=== PATIENT | female | born 1960 | race Caucasian/White ===

== ENCOUNTER → 2017-09-03 17:47 | Outpatient (CLI) | payer MEDICAID, SELFPAY ==
--- NOTE | 2017-09-03 17:51 | MRI_ITS ---
STUDY: MRI LUMBAR SPINE WITH AND WITHOUT CONTRAST REASON FOR EXAM: Female, 57 years old. Back and leg pain with history of fusion at L4/5. TECHNIQUE: Standardized fat and water weighted pulse sequences were obtained in the sagittal and axial planes. 9 ml of Gadavist contrast material was administered for the contrast portion of the examination. COMPARISON: None FINDINGS: T12-L1: Mild disc desiccation without associated disc bulge, spinal canal narrowing or foraminal narrowing. Normal lumbar lordosis. There is no substantial scoliosis. Normal conus medullaris that terminates at the T12/L1 level. L1-2: Disc desiccation with minimal disc space loss without associated spinal canal narrowing or foraminal narrowing. L2-3: Disc desiccation and dehydration without associated disc bulge, spinal canal narrowing or foraminal narrowing. L3-4: Mild decreased disc space and minimal disc bulge without associated spinal canal narrowing or foraminal narrowing. L4-5: There complete loss of disc space with grade 1 anterolisthesis at this level resulting in mild to moderate bilateral foraminal narrowing. L5-S1: Posterior fusion hardware at this level with pedicle screws showing normal alignment. There is degenerative disc changes at this level without associated disc bulge, spinal canal narrowing or foraminal narrowing. Normal visualized sacral ala. Normal visualized paraspinous soft tissue structures. Postcontrast imaging demonstrates no evidence of abnormal disc or epidural enhancement. MRI/Spine Lumbar W/WO Contrast IMPRESSION: 1. Predominant degenerative change at L4/5 with grade 1 anterolisthesis resulting in mild to moderate bilateral foraminal narrowing, clinically correlate for L4 nerve root radiculopathy. 2. Posterior fusion hardware L5/S1 showing normal alignment. No evidence of abnormal disc or epidural enhancement. Electronically Signed: Robin Wesley DO at 23:54 EST , Service support ,
== END ==
PROVIDERS: Family Provider Family Medicine Geriatric Medicine; PCP Family Medicine Geriatric Medicine; Visit Provider Orthopaedic Surgery
DX: M79.606 Pain in leg, unspecified (principal); M54.9 Dorsalgia, unspecified; Z98.1 Arthrodesis status
CPT/HCPCS: 72158; A9585

== ENCOUNTER → 2017-10-01 17:05 | Outpatient (CLI) | payer MEDICAID, SELFPAY | PROVIDERS: Family Provider Family Medicine Geriatric Medicine; PCP Family Medicine Geriatric Medicine; Visit Provider Family Medicine Geriatric Medicine | DX: R68.83 Chills (without fever) (principal) | CPT/HCPCS: 87633 ==

== ENCOUNTER → 2017-10-15 11:43 | Outpatient (CLI) | payer MEDICAID, OTHER, SELFPAY ==
[2017-10-15 14:11] LABS: Erythrocyte Sedimentation Rate 12 mm/hr (0-30)
[2017-10-15 14:36] LABS: CRP < 2.90 mg/L (0.0-3.0)
== END ==
PROVIDERS: Family Provider Family Medicine Geriatric Medicine; PCP Family Medicine Geriatric Medicine; Visit Provider Orthopaedic Surgery
DX: M54.5 Low back pain (principal)
CPT/HCPCS: 36415; 85652; 86140

== ENCOUNTER → 2017-12-13 09:05 | Outpatient (CLI) | payer MEDICAID, SELFPAY ==
[2017-12-13 11:41] LABS: Absolute Lymphocyte Count 2.65 X10^3/ul (0.83-4.51); Absolute Neutrophil Count 2.5 X10^3/uL (2.0-7.7); Basophil# 0.05 X10^3/uL; Basophil% 0.8 % (0-1); Eosinophils% 3.3 % (0-5); Hematocrit 44.7 % (37-47); Hemoglobin 14.6 g/dl (12.0-15.0); Lymphocyte # 2.65 X10^3/ul (4.0); Lymphocyte % 44.1 % (19-41); Mean Corp Hgb Conc 32.7 g/gl (32-36); Mean Corpuscular Hgb 28.6 pg (27.0-32.0); Mean Corpuscular Volume 87.5 fL (81-99); Mean Platelet Vol. 11.1 fl (6.2-12.0); Monocyte# 0.56 X10^3/uL; Monocyte% 9.3 % (0-10); Neutrophil # 2.54 X10^3/uL (2.7-7.7); Neutrophil % 42.3 % (47-70); POSITIVE COUNT NO; POSITIVE DIFFERENTIAL NO; POSITIVE MORPHOLOGY NO; Platelet Count 260 K/mm3 (150-450); RBC Distribution Width CV 12.8 % (11.6-14.6); RBC Distribution Width SD 40.8 fl (35.1-43.9); Red Blood Count 5.11 M/mm3 (4.2-5.4)
[2017-12-13 12:04] LABS: Vitamin D,25 Hydroxy 29.8 ng/mL (29.95-100.01)
[2017-12-13 12:13] LABS: ALB/GLOB Ratio 1.2 RATIO (0.9-2.4); AST(SGOT) 18 U/L (15-37); Alanine Aminotransfer ALT/SGPT 23 U/L (13-56); Albumin, Serum 3.8 g/dL (3.2-5.0); Alkaline Phosphatase 82 U/L (45-117); Anion Gap 7 (5-15); BUN 14 mg/dL (7-18); BUN/Creat Ratio 16.9 RATIO (10-20); Calcium,Total 8.8 mg/dL (8.5-10.1); Chloride 107 mmol/L (98-107); Creatinine, Serum 0.83 mg/dL (0.55-1.02); EST Glomerular Filtration Rate 76 mL/min (>60); Est Glom Filt Rate - Afr Amer 92 mL/min (>60); Globulin 3.3 g/dL (2.2-4.2); Glucose 90 mg/dL (74-106); Potassium 3.7 mmol/L (3.5-5.1); Protein, Total 7.1 g/dL (6.4-8.2); Sodium Level 139 mmol/L (136-145); Thyroid Stim Hormone (TSH) 0.11 uIU/mL (0.358-3.74)
[2017-12-16 09:10] LABS: Hep C Antibodies <0.1 s/co ratio (0.0-0.9)
== END ==
PROVIDERS: Family Provider Family Medicine Geriatric Medicine; PCP Family Medicine Geriatric Medicine; Visit Provider Family Medicine Geriatric Medicine
DX: R53.83 Other fatigue (principal); E55.9 Vitamin D deficiency, unspecified; Z13.89 Encounter for screening for other disorder
CPT/HCPCS: 36415; 80053; 82306; 84443; 85025; 86803

== ENCOUNTER 2018-01-17 07:39 | Day surgery (SDC) | payer MEDICAID, SELFPAY ==
[2018-01-17] VITALS (7 sets, daily range): BP systolic 94–133; BP diastolic 61–85; PULSE 53–64; RESP 18; TEMP 36.4–36.6; O2SAT 99–100; BMI 36.3
--- NOTE | 2018-01-17 | COLBX_PTH ---
PATIENT: ATUL DUPREE LOC: EN U#:[id number] AGE/SX: 57/F ROOM: RE01/17/[address]: Dr. Eleazar Romano MD : 1960 BED: DIS: 01/17/2018 SPEC #: [id number] RECD: 01/17/18 13:18 STATUS: ANNA CHARANJIT #: [id number] JACEK: 01/17/18 00:[address]: Eleazar Romano DEPT: SURGICAL PATHOLOGY RECD BY: Francesco Bridges ENTERED: 01/17/18 13:19 SP TYPE: COLON BX OTHR DR: Dr. Valente Marie MD Tissues: A - Transverse colon B - Descending colon C - Sigmoid colon biopsy D - Rectum, NOS Procedures: Surgery Specimen Level IV HEADER OPERATION: Colonoscopy PRE-OP DIAGNOSIS: Screening TISSUE SUBMITTED: A. Distal transverse colon polyp, B. Proximal descending colon polyp, C. Sigmoid colon polyp, D. Rectal polyp MICROSCOPIC DIAGNOSIS A. Distal transverse colon polyp, polypectomy: Tubular adenoma. B. Proximal descending colon polyp, polypectomy: Tubular adenoma. C. Sigmoid colon polyp, polypectomy: Hyperplastic polyp. Fragment of fecal material. D. Rectal polyp, polypectomy: Hyperplastic polyp. DONNIE:oma 01/20/18 MICROSCOPIC DESCRIPTION Slides are reviewed. GROSS DESCRIPTION A. Received is one container labeled with the patient name and designated distal transverse colon polyp. The specimen consists of one irregular fragment of light hirsch soft tissue that measures 0.3 x 0.3 x 0.2 cm. The specimen is totally submitted in one cassette. B. Received in fixative is one container labeled with the patient's name and designated proximal descending colon polyp. The specimen consists of a piece of hirsch-pink polyp measuring 0.8 x 0.6 x 0.4 cm. The entire specimen is submitted in one cassette. C. Received in fixative is one container labeled with the patient's name and designated sigmoid colon polyp. The specimen consists of a hirsch-pink polyp measuring 0.7 x 0.7 x 0.4 cm. Also present in the container is a piece of hirsch material measuring 0.3 x 0.2 x 0.1 cm. The specimen is totally submitted in one cassette. D. Received in fixative is one container labeled with the patient's name and designated rectal polyp. The specimen consists of a piece of hirsch-pink polyp measuring 0.3 x 0.3 x 0.3 cm. The specimen is totally submitted in one cassette.DONNIE/oma 01/17/18 TC:1 CPT: 31212m2
--- NOTE | 2018-01-17 09:36 | HP.PCM_ITS ---
Past Medical/Surgical History - Planned Operation Planned Operative Procedure/s: colonoscopy open access Date of Operative Procedure: 01/17/18 Permit Signed: No S.O.S: No Is This Patient Having a Total Joint: No - Previous Hospitalizations/Surgeries HX Hospitalizations: No HX of Surgeries: exploratory 1978. cyst removed from tailbone 1979. tubal ligation 1988. carpal tunnel bilat 1998. carpal tunnel left 2010. l5-sacrum sabas and screws/back surgery 2010 Any Problems With Anesthesia: No You/Your Family Experience Fever (Hyperthermia) With Anes: No Cholinesterase deficiency: No - Cardiovascular Hx Chest Pain within Last 2 months: No Hx of Irregular Heartbeat and/or Afib: No Hx Heart Attack: No Hx Congestive Heart Failure: No Hx Rheumatic Fever: No Hx Hypertension: No Hx Internal Defibrillator: No Hx Pacemaker: No Hx Cardiac Catheterization: No Hx Cardiac Surgery/Stents/Etc.: No Hx Stress Test: No HX Edema: No Hx Pain in Legs when Walking/Leg Cramps: Yes - leg pain d/t back issues - Respiratory Chronic Cough: No HX of Shortness of Breath: No Hoarseness: No Hx Chronic Obstructive Pulmonary Disease (COPD): No Hx Asthma: No Hx Emphysema: No Hx Sleep Apnea: No Hx Oxygen Use at Home: No Hx Respiratory Tract Infection/Cold (presently): No Do You Snore Loudly (louder than talking or can be heard): No Do You Often Feel Tired/ Fatigued/ Sleepy Dring Daytime?: Yes Has Anyone Observed You Stop Breathing During Sleep?: No Result (for STOP score): Negative Hx Smoking: Yes - quit ppd for 30 yrs Smoking Status: Former smoker - Gastrointestinal Hx Gastroesophageal Reflux: No - occ heartburn Hx Gastrointestinal Disorders: No Hx Gastrointestinal Bleed: No Hx Ulcer: No Hx Hiatal Hernia: No Difficulty Chewing/Swallowing: No Recent Onset of Swallowing Problems: No Special diet followed at home: No Hx Unplanned Weight Loss of 20#: No HX Unplanned Weight Gain of 20#: No - Neurological Hx Seizures: No HX Syncope/Blackout Spells/Unconsciousness: No Hx CVA/Stroke: No Hx Transient Ischemic Attacks (TIA): No Hx Multiple Sclerosis: No Hx Parkinson's Disease: No Hx Head/Neck Injury: No Hx Headaches: No Hx Back Injury/Pain: Yes - lumbar back surgery with rods and screws Recent Onset of Speech Difficulty: No Restless Legs: No Does patient have nerve stimulator: No Patient instructed to have device shut off: No Rep notified?: No - Blood Disorder Hx Leukemia: No Bleeding Tendencies: Yes - easy bruising d/t previous prolonged steroid use Hx Deep Vein Thrombosis: No Hx High Cholesterol: No Blood Transmitted Disease: No Hx Hepatitis: No Hx Cirrhosis: No Hx Anemia: Yes - during only Hx Blood Disorders: No - Reproduction : No Is Patient Lactating: No Hx Hysterectomy: No Hx Tubal Ligation: Yes Are You Post Menopause: Yes - Genitourinary Hx Renal Disease: No - Musculoskeletal Hx Arthritis: Yes Hx Rheumatoid Arthritis: No Hx Gout: No Recent Onset of an Orthopedic Problem: No - Endocrine Hx Diabetes: No Thyroid Disease: Yes - on med Hx Steroid Therapy: Yes - prednisone recently - Psycho/Social Hx 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 Hx Alcohol Use: Yes - rarely Hx Anxiety: No Hx Depression: No Mental Illness: No Hx Dementia: No - Miscellaneous Hx Cancer: No Recent Exposure to Contagious Disease: No Active MRSA: No Hx of C-Diff: No Any Loose Teeth: No - full set of dentures Allergies tetracycline Allergy (Verified 01/08/18 10:52) Unknown - Discharge Is Pt Admitted From a Detention, or a Longterm: No Who Could Help: family After D/C, Where Do you Plan to Go: Return Home - Physical Exam General: Alert, Oriented x3, Cooperative, No apparent distress HEENT: Atraumatic Lungs: Normal air movement Cardiovascular: Regular rate, Regular Rhythm Abdomen: Soft, Non Tender, Non-Distended Vital Signs Temp Pulse Resp BP Pulse Ox 98 F 60 18 133/85 H 99 01/17/18 08:12 01/17/18 08:12 01/17/18 08:12 01/17/18 08:12 01/17/18 08:12 Oxygen Delivery Method Room Air Weight: 192 lb 7.417 oz Body Mass Index (BMI) 36.3 Assessment/Plan 57-year-old female for screening colonoscopy 1. The patient reports she is having no issues at this time. She is having no abdominal pain or blood in her stool. She has no family history of colon cancer. This is her first colonoscopy. 2. I explained endoscopy in detail to the patient. I explained the risks including but not limited to stroke or heart attack with anesthesia, perforation of the GI tract, bleeding, infection. I explained that any of these could necessitate further emergency surgery. The patient understands and all questions were answered sufficiently. The patient wishes to proceed with procedure. Eleazar Romano MD Pager: [facility] [address] [place] [address] [address] [place] [address] Office: Surgery Risks - Colonoscopy Risks Include but are not Limited To: Risks include but are not limited to: Bleeding, perforation requiring further surgery, inability to complete colonoscopy requiring barium enema.
--- NOTE | 2018-01-17 12:04 | PCM.OPRPT ---
Problem List (1) Screen for colon cancer Status: Acute Report of Operation Date of Procedure: 01/17/18 Pre-Operative Diagnosis: Screening for colon cancer Post-Operative Diagnosis: Several polyps Surgery/Procedure Performed:: Colonoscopy with several snare polypectomies Specimen's removed: 1. Distal transverse colon polyp. 2. Descending colon polyp. 3. Sigmoid colon polyp. 4. Rectal polyp Description of Procedure: The major risks and benefits associated with the procedure were explained to the patient in detail. The patient verbalized understanding and agreement with the same. The patient was brought to the endoscopy suite. After adequate sedation was achieved, the patient was placed in the left lateral decubitus position and a digital rectal exam was performed. This examination was within normal limits. A well-lubricated colonoscope was then inserted into the rectum and advanced under direct visualization to the level of the cecum. The bowel prep was good. The cecum was identified by both visual and anatomic landmarks. A photograph was taken of the end of the cecum. The scope was then fully withdrawn while examining the color, texture, anatomy and integrity of the mucosa from the cecum to the anal canal. The findings were consistent with normal colonic mucosa. The patient had several polyps. She had a pedunculated polyp of the distal transverse colon as well as descending colon. She had 2 in the sigmoid colon and she had another polyp in the rectal area. All of these were removed with cautery snare and hemostasis was good. Over 6 minutes were taken to examine the colonic mucosa. Upon reaching the rectum the scope was retroflexed to examine the distal rectal vault. The scope was then straightened and was completely retrieved upon exiting the anal canal and the procedure was terminated. The patient was then transferred to the recovery room in stable condition. Recommendations for follow up: Dependent on pathology
== END 2018-01-17 11:23 | disposition home or self-care (01) ==
LOC: EN 07:40 → AC 07:41
PROVIDERS: Family Provider Family Medicine Geriatric Medicine; PCP Family Medicine Geriatric Medicine; Visit Provider Surgery
PROC: 0DJD8ZZ Inspection of Lower Intestinal Tract, Via Natural or Artificial Opening Endoscopic (ICD-10-PCS; CPT 45378; principal; 2018-01-17 08:55)
DX: Z12.11 Encounter for screening for malignant neoplasm of colon (principal); K62.1 Rectal polyp; D12.4 Benign neoplasm of descending colon; D12.3 Benign neoplasm of transverse colon; K63.5 Polyp of colon; Z87.891 Personal history of nicotine dependence; E07.9 Disorder of thyroid, unspecified
CPT/HCPCS: 45385; 88305; J7120

== ENCOUNTER → 2018-02-11 16:32 | Outpatient (CLI) | payer OTHER, SELFPAY ==
[2018-02-11 12:59] LABS: Thyroid Stim Hormone (TSH) 0.64 uIU/mL (0.358-3.74)
== END ==
PROVIDERS: Family Provider Family Medicine Geriatric Medicine; PCP Family Medicine Geriatric Medicine; Referring Provider Family Medicine Geriatric Medicine; Visit Provider Family Medicine Geriatric Medicine
DX: E03.9 Hypothyroidism, unspecified (principal)
CPT/HCPCS: 36415; 84443

== ENCOUNTER 2018-02-12 09:45 | Emergency (ER) | payer OTHER, SELFPAY ==
[2018-02-12 09:45] VITALS: BP 129/80; PULSE 87; RESP 15; TEMP 36.8; O2SAT 97; BMI 36.8
[2018-02-12] MEDS: Morphine 4 MG/ML Syringe IV (10:54)
[2018-02-12] MEDS: Ketorolac 30 MG/ML Syringe IV (10:55)
[2018-02-12] MEDS: Ondansetron 4 MG/2 ML Vial IV (10:55)
--- NOTE | 2018-02-12 11:47 | ED.VISSUMM ---
- ER Visit Summary Date of Service: 02/12/18 Chief Complaint: Bilateral lower back pain History of Present Illness: The patient is a 57 F who presents with worsening bilateral low back pain. Onset 6 months ago. She states she had an MRI which revealed a herniated disc. She denies bowel bladder dysfunction. Denies saddle paresthesia or anesthesia. She denies foot drop. Denies quadricep weakness going up or down steps. She denies any symptoms of claudication. She prefers to sit versus standing. She denies fever, chills night sweats. She denies weight gain or weight loss. She took 1 of her mother's Klonopin pills without benefit. She was scheduled for physical therapy. She has no other complaints please read written note Physical Examination: Vital signs are noted and unremarkable. BMI is 36.8. HEENT exam is unremarkable. Heart is regular without murmur, gallop or rub. S1 and S2 are normal. Lungs are clear to auscultation with good movement of air bilaterally. Abdomen is soft nontender. Is no palpable cell mass abdominal bruit. DP and PT pulses are 2+ and palpable and symmetric. Straight leg test is negative. Crossover test is negative. Patella and ankle reflex are 1+ symmetric. There is no clonus or Babinski sign noted. There is normal perianal sensation. Movement causes her pain. Palpation of the right and left lower back causes her discomfort. She has no midline pain. She has a well-healed midline lumbar incision noted. Test Results: MRI was performed on September 03, 2017 and revealed predominant degenerative changes at L4-5 with a grade 1 anterolisthesis resulting in mild to moderate bilateral foraminal narrowing. Radiologist reported clinically correlate for L4 nerve root colopathy. Posterior fusion hardware noted at L5-S1. No evidence of abnormal disc or epidural enhancement. Emergency Department Course and Treatment: IV was established she was medicated with 4 mg Zofran. 4 mg of morphine and 30 Hawkins of Toradol. She was seen ambulating to the restroom. She is groggy from the morphine. Treatment Plan: Discharged with prescription for Naprosyn and [place] for severe pain. Patient was educated that her MRI revealed degenerative changes and this most likely is related to her weight. She was informed every 10 pounds but she is overweight is equivalent to 35-70 pounds of stress on her spine. Disposition: Discharge in stable condition with mother Impression: Bilateral low back pain without sciatica History of degenerative changes L4-5 with grade 1 anterolisthesis This note was generated with [employer] dictation software. It may contain incorrect words, spelling, and punctuation that were not noted in review of the chart prior to signing ED Disposition - Plan for ED Patient: Disposition: Home or Assisted Living Chief Complaint: Back Instructions: ED Neck Back Pain General Prescriptions: Hydrocodone Bitart/Apap 5-325 [[place] 5MG-325MG] 1 tablet PO Q6H PRN PRN 3 Days #10 tablet PRN Reason: Pain Naproxen [Naprosyn] 500 mg PO BID #20 tab Referrals: Valente Marie Chi, MD [Primary Care Provider] - 3-5 Days if not improving Additional Instructions: Your prescriptions were electronically transmitted to [facility], which is your preferred pharmacy.
--- NOTE | 2018-02-12 11:53 | ED.DCSUM_ITS ---
- ER Visit Summary Date of Service: 02/12/18 Chief Complaint: Bilateral lower back pain History of Present Illness: The patient is a 57 F who presents with worsening bilateral low back pain. Onset 6 months ago. She states she had an MRI which revealed a herniated disc. She denies bowel bladder dysfunction. Denies saddle paresthesia or anesthesia. She denies foot drop. Denies quadricep weakness going up or down steps. She denies any symptoms of claudication. She prefers to sit versus standing. She denies fever, chills night sweats. She denies weight gain or weight loss. She took 1 of her mother's Klonopin pills without benefit. She was scheduled for physical therapy. She has no other complaints please read written note Physical Examination: Vital signs are noted and unremarkable. BMI is 36.8. HEENT exam is unremarkable. Heart is regular without murmur, gallop or rub. S1 and S2 are normal. Lungs are clear to auscultation with good movement of air bilaterally. Abdomen is soft nontender. Is no palpable cell mass abdominal bruit. DP and PT pulses are 2+ and palpable and symmetric. Straight leg test is negative. Crossover test is negative. Patella and ankle reflex are 1+ symmetric. There is no clonus or Babinski sign noted. There is normal perianal sensation. Movement causes her pain. Palpation of the right and left lower back causes her discomfort. She has no midline pain. She has a well- healed midline lumbar incision noted. Test Results: MRI was performed on September 03, 2017 and revealed predominant degenerative changes at L4-5 with a grade 1 anterolisthesis resulting in mild to moderate bilateral foraminal narrowing. Radiologist reported clinically correlate for L4 nerve root colopathy. Posterior fusion hardware noted at L5- S1. No evidence of abnormal disc or epidural enhancement. Emergency Department Course and Treatment: IV was established she was medicated with 4 mg Zofran. 4 mg of morphine and 30 Hawkins of Toradol. She was seen ambulating to the restroom. She is groggy from the morphine. Treatment Plan: Discharged with prescription for Naprosyn and [place] for severe pain. Patient was educated that her MRI revealed degenerative changes and this most likely is related to her weight. She was informed every 10 pounds but she is overweight is equivalent to 35-70 pounds of stress on her spine. Disposition: Discharge in stable condition with mother Impression: Bilateral low back pain without sciatica History of degenerative changes L4-5 with grade 1 anterolisthesis This note was generated with [employer] dictation software. It may contain incorrect words, spelling, and punctuation that were not noted in review of the chart prior to signing ED Disposition - Plan for ED Patient: Disposition: Home or Assisted Living Chief Complaint: Back Instructions: ED Neck Back Pain General Prescriptions: Hydrocodone Bitart/Apap 5-325 [[place] 5MG-325MG] 1 tablet PO Q6H PRN PRN 3 Days # 10 tablet PRN Reason: Pain Naproxen [Naprosyn] 500 mg PO BID #20 tab Referrals: Valente Marie Chi, MD [Primary Care Provider] - 3-5 Days if not improving Additional Instructions: Your prescriptions were electronically transmitted to [facility], which is your preferred pharmacy.
[2018-02-12 12:08] VITALS: BP 125/90; PULSE 62; RESP 16; O2SAT 95
== END 2018-02-12 12:13 | disposition home or self-care (01) ==
PROVIDERS: Emergency Provider Emergency Medicine; Family Provider Family Medicine Geriatric Medicine; PCP Family Medicine Geriatric Medicine
DX: M54.5 Low back pain (principal); E66.9 Obesity, unspecified; Z68.36 Body mass index [BMI] 36.0-36.9, adult
CPT/HCPCS: 96374; 96375; 99283; A4216; J2405

== ENCOUNTER 2018-02-24 17:30 | Outpatient (RCR) | payer OTHER, SELFPAY ==
--- NOTE | 2018-02-11 11:28 | HP.PTEVAL ---
Patient's Visit Information ATUL DUPREE is a 57 year old F referred to Physical Therapy by Briana Caraballo with a diagnosis of BACK AND LEG PAIN. Date of Evaluation: 02/11/18 Physical Therapist: Didier Abdullahi, PT, - Visit Plan Frequency: 2x /Week Duration: 4 Weeks Plan: Aquatic PT for lumbar ROM ,DLS,strengthening LE,posture,FLEXABLITY - Subjective Subjective: This 57 y/o female presents to physical therapy with back and leg pain right side. Patient has lumbar fusion rods/screws 2010 . Patient symptoms became worse past year with lumbr and right leg to calf desribed as a toothache. Symptoms worse with sitting,standing,lifting,walking. Patient pain affects sleeping. Patient has parathesia/tingling in legs after standing 2 minutes. Symptoms not better with nothing. patient has had pain injections last summer.Patient had MRI. Coughing/sneezing +. Bowel/bladder good. SOCAIL: takes care of mother. 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 NEURO: c/o parathesia/tingling ,light touich intact ,redflexes 1/3 L3-4,L4-5,L5-S1. SYMMTRIES : align. PALPATION: tender SI/LS. GAIT: antalgic gait right side foward posture slow fortunato. MMT: quads/hams 4-/5 right,left 4/5,hip flexion right 3+/5,left 4-/5,ankle 4/5. LUMBAR ROM: flexion min loss,extension sever loss pain ,side glides mod loss. FLEXABLITY: hams WFL - Special Tests L/S Slump test left side: Positive L/S Slump test right side: Positive L/S Left Straight Leg Raise: Positive L/S Right Straight Leg Raise: Positive - Goals Goal 1:: Independant with Aquatic PT Goal Time Frame: 4-6 Weeks Goal 2:: Independant with posture for ADL'S Goal Time Frame: 4-6 Weeks Goal 3:: Patient to ambulate with improved fortunato with gait with less antalgic pattern 70% Goal Time Frame: 4-6 Weeks Goal 4:: Patient improve function of recovery with less pain Goal Time Frame: 4-6 Weeks Goal 5:: Patient able to perform ADL'S and housework tasks with min/m limiations Goal Time Frame: 4-6 Weeks - Rehabilitation Potential Physical Therapy Diagnosis: This patient has complexity issues with severe back and leg pain with weakness ,impairs gait ,function ,job and QOL. Patient has h/o lumbar fusion 2010. Patient had MRI ,Dr Barnes recommended surgery Rehabilitation Potential: Good - Anticipated Interventions Patient/Client Instruction: Educate patient on: Condition, Plan of Care For the Purpose of:: To decrease pain, To increase ROM, To improve muscle performance and motor function, To improve ability to perform ADL's, To increase tolerance to activity/condition/position, To improve ability of physical actions for home/community/work/leisure, To improve health of tissue, To decrease soft tissue restriction, To improve ability to perform tasks related to life management Therapeutic Exercise to Include: Strength training, Body mechanics, Postural training, Flexibilty training, In an aquatic setting, Dynamic Lumbar Stabilization For the Purpose of:: To decrease pain, To increase ROM, To improve muscle performance and motor function, To improve ability to perform ADL's, To increase tolerance to activity/condition/position, To improve performance and independence with ADL's, To improve ability of physical actions for home/community/work/leisure, To decrease soft tissue restriction, To increase flexibility/ROM, To improve ability to perform tasks related to life management Thank you for the opportunity to evaluate your patient. For Medicare and Medicare HMO plans, please review the plan of care and approve it. It will need to be FAXED BACK to us at [phone] for Medicare purposes. Please let me know if there are questions or concerns regarding this plan of care. Physician Signature: Date:
--- NOTE | 2018-04-15 07:41 | HP.PT.NRP ---
HP - Discharge Summary (1) - Patient Information ATUL DUPREE was seen in my office for initial evaluation on 02/11/18. The following Plan of Care was established for this patient: Initial Frequency: 2x /Week Initial Duration: 4 Weeks - Anticipated Interventions Patient/Client Instruction: Educate patient on: Condition, Plan of Care For the Purpose of:: To decrease pain, To increase ROM, To improve muscle performance and motor function, To improve ability to perform ADL's, To increase tolerance to activity/condition/position, To improve ability of physical actions for home/community/work/leisure, To improve health of tissue, To decrease soft tissue restriction, To improve ability to perform tasks related to life management Therapeutic Exercise to Include: Strength training, Body mechanics, Postural training, Flexibilty training, In an aquatic setting, Dynamic Lumbar Stabilization For the Purpose of:: To decrease pain, To increase ROM, To improve muscle performance and motor function, To improve ability to perform ADL's, To increase tolerance to activity/condition/position, To improve performance and independence with ADL's, To improve ability of physical actions for home/community/work/leisure, To decrease soft tissue restriction, To increase flexibility/ROM, To improve ability to perform tasks related to life management This patient was last seen in our office 03/17/18. Pertinent comments regarding their Physical therapy will appear below: Patient seen for PT with Aquatic PT for back and leg pain . Patient PT focused on DLS,postural,ex's,strengthening,LE flexablity.Thus is d/c . At this point I will be discontinuing this patient from physical therapy. I would be happy to see this patient again in the future if found appropriate by the physician. Thank you! Didier Abdullahi, PT,
== END 2018-02-24 19:00 | disposition home or self-care (01) ==
LOC: PT 17:30
PROVIDERS: Family Provider Family Medicine Geriatric Medicine; PCP Family Medicine Geriatric Medicine; Visit Provider Orthopaedic Surgery
DX: M54.9 Dorsalgia, unspecified (principal); M79.606 Pain in leg, unspecified
CPT/HCPCS: 97113; 97162

== ENCOUNTER → 2018-03-26 08:20 | Outpatient (CLI) | payer OTHER, SELFPAY | PROVIDERS: Family Provider Family Medicine Geriatric Medicine; PCP Family Medicine Geriatric Medicine; Visit Provider Obstetrics & Gynecology | DX: Z12.31 Encounter for screening mammogram for malignant neoplasm of breast (principal) | CPT/HCPCS: 77063; 77067 ==

== ENCOUNTER → 2018-05-15 21:45 | Outpatient (CLI) | payer OTHER, SELFPAY ==
[2018-05-20 10:43] LABS: HPV APTIMA, High Risk Negative (Negative)
== END ==
PROVIDERS: Family Provider Family Medicine Geriatric Medicine; PCP Family Medicine Geriatric Medicine; Referring Provider Obstetrics & Gynecology; Visit Provider Obstetrics & Gynecology
DX: Z12.4 Encounter for screening for malignant neoplasm of cervix (principal)
CPT/HCPCS: 87624; 88175; G0145

== ENCOUNTER → 2018-12-17 09:09 | Outpatient (CLI) | payer OTHER, SELFPAY ==
[2018-05-15 15:32] VITALS: BMI 38.0
[2018-12-17 10:47] LABS: Absolute Lymphocyte Count 1.76 X10^3/ul (0.83-4.51); Absolute Neutrophil Count 1.9 X10^3/uL (2.0-7.7); Basophil# 0.04 X10^3/uL; Basophil% 0.9 % (0-1); Eosinophil# 0.22 X10^3/uL; Eosinophils% 5.1 % (0-5); Hematocrit 42.8 % (37-47); Hemoglobin 14.2 g/dl (12.0-15.0); Lymphocyte # 1.76 X10^3/ul (4.0); Lymphocyte % 40.8 % (19-41); Mean Corp Hgb Conc 33.2 g/gl (32-36); Mean Corpuscular Hgb 28.7 pg (27.0-32.0); Mean Corpuscular Volume 86.5 fL (81-99); Mean Platelet Vol. 11.7 fl (6.2-12.0); Monocyte# 0.37 X10^3/uL; Monocyte% 8.6 % (0-10); Neutrophil # 1.92 X10^3/uL (2.7-7.7); Neutrophil % 44.6 % (47-70); Platelet Count 238 K/mm3 (150-450); RBC Distribution Width CV 13.7 % (11.6-14.6); RBC Distribution Width SD 42.8 fl (35.1-43.9); Red Blood Count 4.95 M/mm3 (4.2-5.4); White Blood Count 4.3 K/mm3 (4.4-11.0)
[2018-12-17 10:49] LABS: POSITIVE COUNT NO; POSITIVE DIFFERENTIAL NO; POSITIVE MORPHOLOGY NO
[2018-12-17 11:02] LABS: ALB/GLOB Ratio 1.1 RATIO (0.9-2.4); AST(SGOT) 15 U/L (15-37); Alanine Aminotransfer ALT/SGPT 22 U/L (13-56); Albumin, Serum 3.7 g/dL (3.2-5.0); Alkaline Phosphatase 96 U/L (45-117); Anion Gap 5 (5-15); BUN 13 mg/dL (7-18); BUN/Creat Ratio 18.2 RATIO (10-20); Calcium,Total 8.9 mg/dL (8.5-10.1); Chloride 107 mmol/L (98-107); Creatinine, Serum 0.72 mg/dL (0.55-1.02); EST Glomerular Filtration Rate 89 mL/min (>60); Est Glom Filt Rate - Afr Amer 108 mL/min (>60); Globulin 3.5 g/dL (2.2-4.2); Glucose 114 mg/dL (74-106); Potassium 3.8 mmol/L (3.5-5.1); Protein, Total 7.2 g/dL (6.4-8.2); Sodium Level 141 mmol/L (136-145); Thyroid Stim Hormone (TSH) 1.68 uIU/mL (0.358-3.74)
[2018-12-17 11:05] LABS: Vitamin D,25 Hydroxy 24.4 ng/mL (29.95-100.01)
== END ==
PROVIDERS: Family Provider Family Medicine Geriatric Medicine; PCP Family Medicine Geriatric Medicine; Visit Provider Family Medicine Geriatric Medicine
DX: E55.9 Vitamin D deficiency, unspecified (principal); R53.83 Other fatigue
CPT/HCPCS: 36415; 80053; 82306; 84443; 85025

== ENCOUNTER → 2019-03-17 08:12 | Outpatient (CLI) | payer OTHER, SELFPAY ==
--- NOTE | 2019-03-17 08:14 | RAD_ITS ---
STUDY: X-RAY - LUMBAR SPINE REASON FOR EXAM: Female, 58 years old. Lower back pain. TECHNIQUE: 4 view(s) of the lumbar spine were obtained. COMPARISON: Lumbar spine, August 13, 2017. FINDINGS: There is mild exaggeration of lumbar lordosis. There is a mild levoscoliosis with convexity at L4. There is anterolisthesis of L4 on L5 of 1 cm. There is otherwise preserved. There is surgical fusion of L5-S1. The hardware is intact. There is multilevel endplate spondylosis of the lumbar vertebrae. There is multi-level degenerative disc disease with multi-level disc space narrowing. There is no evidence of acute fracture or loss of vertebral axial height. There is no change in alignment with flexion or extension. The soft tissue structures are unremarkable. RAD/L/S Spine Min 4 Views IMPRESSION: 1. Surgical fusion of L5-S1. 2. Diffuse degenerative changes of the lumbar spine most marked at L4-5. There is no major interval change. Electronically Signed: Alexi Lee DO at 16:53 EDT Tel [phone], Service support ,
== END ==
PROVIDERS: Family Provider Family Medicine Geriatric Medicine; PCP Family Medicine Geriatric Medicine; Referring Provider Orthopaedic Surgery; Visit Provider Orthopaedic Surgery
DX: M43.16 Spondylolisthesis, lumbar region (principal); M51.36 Other intervertebral disc degeneration, lumbar region
CPT/HCPCS: 72110

== ENCOUNTER → 2019-08-24 16:19 | Outpatient (CLI) | payer OTHER, SELFPAY ==
--- NOTE | 2019-08-24 16:50 | RAD_ITS ---
STUDY: X-RAY - RIGHT SHOULDER REASON FOR EXAM: Female, 59 years old. CHRONIC PAIN SINCE APRIL, PT HAS OSTEOARTHRITIS TECHNIQUE: 4 view(s) of the shoulder. COMPARISON: August 24 2019 left shoulder x-ray FINDINGS: There is mild degenerative arthrosis of the glenohumeral articulation. There is degenerative arthrosis of the acromioclavicular joint without inferior osseous spur formation. Normal acromion. Normal humeral head and visualized proximal humerus. The soft tissue structures are unremarkable. Normal visualized pulmonary apex. RAD/Shoulder min 2 Views IMPRESSION: Degenerative change. No visualized acute fracture. Electronically Signed: Toshia Brantley MD at 18:01 EST Tel , Service support ,
--- NOTE | 2019-08-24 16:50 | RAD_ITS ---
STUDY: X-RAY - RIGHT HAND REASON FOR EXAM: Female, 59 years old. CHRONIC PAIN SINCE APRIL, PT HAS OSTEOARTHRITIS TECHNIQUE: 3 view(s) of the hand. COMPARISON: None. FINDINGS: Normal radiocarpal articulation. Normal distal radioulnar joint. Normal visualized carpal bones. Normal carpal articulations There is degenerative arthrosis of the carpometacarpal (CMC) articulation of the thumb. Normal second through fifth carpometacarpal joints. Normal metacarpi. Normal metacarpophalangeal joint of the thumb. Normal interphalangeal joint of the thumb. Normal proximal and distal phalanges of the thumb. Normal metacarpophalangeal joints of the second through fifth fingers. Normal proximal and distal interphalangeal joints of the second through fifth fingers. Normal phalanges of the second through fifth fingers. The soft tissue structures are unremarkable. RAD/Hand Min 3 Views IMPRESSION: Moderate first carpometacarpal joint arthrosis. Electronically Signed: Mike Steiner MD at 8:51 EST Tel , Service support ,
--- NOTE | 2019-08-24 16:50 | RAD_ITS ---
STUDY: X-RAY - LEFT HAND REASON FOR EXAM: Female, 59 years old. CHRONIC PAIN SINCE APRIL, PT HAS OSTEOARTHRITIS TECHNIQUE: 3 view(s) of the hand. COMPARISON: None. FINDINGS: Normal radiocarpal articulation. Normal distal radioulnar joint. Nonvisualization of the trapezium which may have been removed or resorbed. Associated proximal subluxation of the first metacarpal bone. Normal carpal articulations There is degenerative arthrosis of the carpometacarpal articulation of the thumb with lateral subluxation of the first metacarpus. Normal second through fifth carpometacarpal joints. Normal metacarpi. Normal metacarpophalangeal joint of the thumb. Normal interphalangeal joint of the thumb. Normal proximal and distal phalanges of the thumb. Normal metacarpophalangeal joints of the second through fifth fingers. Normal proximal and distal interphalangeal joints of the second through fifth fingers. Normal phalanges of the second through fifth fingers. The soft tissue structures are unremarkable. RAD/Hand Min 3 Views IMPRESSION: Moderate first carpal metacarpal joint arthrosis with either resection or resorption of the trapezium. Electronically Signed: Mike Steiner MD at 8:47 EST Tel , Service support ,
--- NOTE | 2019-08-24 16:50 | RAD_ITS ---
STUDY: X-RAY - THORACIC SPINE REASON FOR EXAM: Female, 59 years old. CHRONIC PAIN SINCE APRIL, PT HAS OSTEOARTHRITIS TECHNIQUE: 3 view(s) of the thoracic spine were obtained. COMPARISON: None. FINDINGS: Normal kyphosis of the thoracic spine. There is no substantial scoliosis. There is multilevel endplate spondylosis of the thoracic vertebrae. There is multilevel disc space narrowing of the thoracic spine. The soft tissue structures are unremarkable. RAD/Thoracic Spine 3 Views IMPRESSION: Moderate diffuse degenerative disc disease. Electronically Signed: Mike Steiner MD at 8:50 EST Tel , Service support ,
--- NOTE | 2019-08-24 16:50 | RAD_ITS ---
STUDY: X-RAY - PELVIS AND BILATERAL HIPS REASON FOR EXAM: Female, 59 years old. CHRONIC PAIN SINCE APRIL, PT HAS OSTEOARTHRITIS TECHNIQUE: AP view of the pelvis.? 2 views of the right hip, and 2 views of the left hip were obtained. COMPARISON: None. FINDINGS: There is a non-specific bowel gas pattern. Normal visualized soft tissue structures. Normal bilateral iliac wings, sacroiliac joints and visualized sacrum. Normal bilateral superior and inferior pubic rami. Normal pubic symphysis. Normal bilateral ischial tuberosities. Normal visualized right femoral head. Normal right acetabulum. Normal right hip joint. Normal visualized left femoral head. Normal left acetabulum. Normal left hip joint. RAD/Hips B/L min 2 views w/ Pelvis IMPRESSION: Normal x-ray examination of the pelvis and bilateral hips. Electronically Signed: Mike Steiner MD at 8:50 EST Tel , Service support ,
--- NOTE | 2019-08-24 16:50 | RAD_ITS ---
STUDY: X-RAY - LEFT SHOULDER REASON FOR EXAM: Female, 59 years old. CHRONIC PAIN SINCE APRIL, PT HAS OSTEOARTHRITIS TECHNIQUE: 4 view(s) of the shoulder. COMPARISON: None. FINDINGS: Mild degenerative changes at the glenohumeral articulation. Mild hypertrophy at the acromioclavicular joint. Normal acromion. Normal humeral head and visualized proximal humerus. The soft tissue structures are unremarkable. Normal visualized pulmonary apex. RAD/Shoulder min 2 Views IMPRESSION: Mild degenerative changes of the shoulder. Electronically Signed: Ross Urbina DO at 0:01 EST Tel [phone], Service support ,
--- NOTE | 2019-08-24 16:50 | RAD_ITS ---
STUDY: X-RAY - LEFT FOOT CLINICAL: Female, 59 years old. CHRONIC PAIN SINCE APRIL, PT HAS OSTEOARTHRITIS TECHNIQUE: 2 view(s) of the foot. COMPARISON: None. FINDINGS: Normal talus, calcaneus, and tarsal bones. Tiny plantar calcaneal enthesophyte 1 cm os trigonum. Normal visualized subtalar, talonavicular, calcaneocuboid, tarsal and tarsometatarsal articulations. Normal metatarsi. There is degenerative arthrosis of the metatarsophalangeal joint of the hallux with a hallux valgus deformity. Normal tibial and fibular sesamoid bones. Normal interphalangeal joint of the great toe. Normal phalanges of the great toe. Normal second through fifth metatarsophalangeal joints. Normal interphalangeal joints and phalanges of the lesser toes. The soft tissue structures are unremarkable. RAD/Foot 2 Views IMPRESSION: Mild hallux valgus deformity. Electronically Signed: Mike Steiner MD at 8:44 EST Tel , Service support ,
--- NOTE | 2019-08-24 16:50 | RAD_ITS ---
STUDY: X-RAY - RIGHT FOOT CLINICAL: Female, 59 years old. CHRONIC PAIN SINCE APRIL, PT HAS OSTEOARTHRITIS TECHNIQUE: 2 view(s) of the foot. COMPARISON: None. FINDINGS: Normal talus, calcaneus, and tarsal bones. Small plantar calcaneal enthesophyte. Normal visualized subtalar, talonavicular, calcaneocuboid, tarsal and tarsometatarsal articulations. Normal metatarsi. Normal metatarsophalangeal joint of the great toe. Normal tibial and fibular sesamoid bones. Normal interphalangeal joint of the great toe. Normal phalanges of the great toe. Normal second through fifth metatarsophalangeal joints. Normal interphalangeal joints and phalanges of the lesser toes. The soft tissue structures are unremarkable. RAD/Foot 2 Views IMPRESSION: Normal x-ray examination of the foot. Electronically Signed: Mike Steiner MD at 8:45 EST Tel , Service support ,
[2019-08-24 17:20] LABS: Absolute Neutrophil Count 3.4 X10^3/uL (2.0-7.7); Basophil# 0.03 X10^3/uL; Basophil% 0.5 % (0-1); Eosinophil# 0.17 X10^3/uL; Eosinophils% 2.9 % (0-5); Hematocrit 43.3 % (37-47); Hemoglobin 13.6 g/dL (12.0-15.0); Lymphocyte % 25.4 % (19-41); Mean Corp Hgb Conc 31.4 g/dL (32-36); Mean Corpuscular Hgb 27.9 pg (27.0-32.0); Mean Corpuscular Volume 88.9 fL (81-99); Mean Platelet Vol. 10.7 fl (6.2-12.0); Monocyte# 0.74 X10^3/uL; Monocyte% 12.5 % (0-10); NRBC Flagged by Analyzer 0 % (0-5); Neutrophil # 3.44 X10^3/uL (2.7-7.7); Neutrophil % 58.4 % (47-70); Platelet Count 297 K/mm3 (150-450); RBC Distribution Width CV 14.2 % (11.6-14.6); RBC Distribution Width SD 46.1 fl (35.1-43.9); Red Blood Count 4.87 M/mm3 (4.2-5.4); White Blood Count 5.9 K/mm3 (4.4-11.0)
[2019-08-24 17:43] LABS: Erythrocyte Sedimentation Rate 49 mm/hr (0-30)
[2019-08-24 18:16] LABS: ALB/GLOB Ratio 0.9 RATIO (0.9-2.4); AST(SGOT) 14 U/L (15-37); Alanine Aminotransfer ALT/SGPT 26 U/L (13-56); Albumin, Serum 3.4 g/dL (3.2-5.0); Alkaline Phosphatase 79 U/L (45-117); Anion Gap 3 (5-15); BUN 16 mg/dL (7-18); BUN/Creat Ratio 15.5 RATIO (10-20); Calcium,Total 9.1 mg/dL (8.5-10.1); Chloride 104 mmol/L (98-107); Creatinine, Serum 1.03 mg/dL (0.55-1.02); EST Glomerular Filtration Rate 59 mL/min (>60); Est Glom Filt Rate - Afr Amer 71 mL/min (>60); Globulin 3.7 g/dL (2.2-4.2); Glucose 95 mg/dL (74-106); Potassium 3.9 mmol/L (3.5-5.1); Protein, Total 7.1 g/dL (6.4-8.2); Sodium Level 136 mmol/L (136-145); Uric Acid 4.1 mg/dL (2.6-6.0)
[2019-08-26 20:44] LABS: ANTINUCLEAR ANTIBODIES DIRECT Negative (Negative); Anti-dsDNA Ab <1 IU/mL (0-9)
== END ==
PROVIDERS: PCP Family Medicine Geriatric Medicine; Referring Provider Family Medicine Geriatric Medicine; Visit Provider Family Medicine Geriatric Medicine
DX: M06.4 Inflammatory polyarthropathy (principal); M25.519 Pain in unspecified shoulder; M79.609 Pain in unspecified limb; M25.559 Pain in unspecified hip; M54.2 Cervicalgia
CPT/HCPCS: 36415; 72072; 73030; 73130; 73521; 73620; 80053; 84550; 85025; 85652; 86038; 86140; 86225; 86431

== ENCOUNTER → 2019-12-21 10:07 | Outpatient (CLI) | payer OTHER, SELFPAY ==
[2019-03-17 08:31] VITALS: BMI 38.0
[2019-12-21 12:29] LABS: Absolute Lymphocyte Count 1.35 X10^3/uL (0.83-4.51); Absolute Neutrophil Count 5.4 X10^3/uL (2.0-7.7); Basophil# 0.02 X10^3/uL; Basophil% 0.3 % (0-1); Eosinophil# 0.02 X10^3/uL; Eosinophils% 0.3 % (0-5); Hematocrit 39.7 % (37-47); Hemoglobin 12.5 g/dL (12.0-15.0); Lymphocyte # 1.35 X10^3/ul (4.0); Lymphocyte % 17.1 % (19-41); Mean Corp Hgb Conc 31.5 g/dL (32-36); Mean Corpuscular Hgb 30.3 pg (27.0-32.0); Mean Corpuscular Volume 96.4 fL (81-99); Mean Platelet Vol. 11.1 fl (6.2-12.0); Monocyte# 1.09 X10^3/uL; Monocyte% 13.8 % (0-10); NRBC Flagged by Analyzer 0 % (0-5); Neutrophil # 5.36 X10^3/uL (2.7-7.7); Neutrophil % 67.7 % (47-70); Platelet Count 317 K/mm3 (150-450); RBC Distribution Width CV 15.2 % (11.6-14.6); RBC Distribution Width SD 54.4 fl (35.1-43.9); Red Blood Count 4.12 M/mm3 (4.2-5.4); White Blood Count 7.9 K/mm3 (4.4-11.0)
[2019-12-21 12:30] LABS: Vitamin D,25 Hydroxy 34.7 ng/mL
[2019-12-21 13:04] LABS: ALB/GLOB Ratio 0.9 RATIO (0.9-2.4); AST(SGOT) 13 U/L (15-37); Alanine Aminotransfer ALT/SGPT 29 U/L (13-56); Albumin, Serum 3.1 g/dL (3.2-5.0); Alkaline Phosphatase 76 U/L (45-117); Anion Gap 6 (5-15); BUN 24 mg/dL (7-18); BUN/Creat Ratio 27.8 RATIO (10-20); Calcium,Total 9.1 mg/dL (8.5-10.1); Chloride 106 mmol/L (98-107); Creatinine, Serum 0.86 mg/dL (0.55-1.02); EST Glomerular Filtration Rate 72 mL/min (>60); Est Glom Filt Rate - Afr Amer 87 mL/min (>60); Globulin 3.5 g/dL (2.2-4.2); Glucose 98 mg/dL (74-106); Potassium 4.1 mmol/L (3.5-5.1); Protein, Total 6.6 g/dL (6.4-8.2); Sodium Level 141 mmol/L (136-145); Thyroid Stim Hormone (TSH) 0.81 uIU/mL (0.358-3.74)
== END ==
PROVIDERS: PCP Family Medicine Geriatric Medicine; Visit Provider Family Medicine Geriatric Medicine
DX: R53.83 Other fatigue (principal); E55.9 Vitamin D deficiency, unspecified
CPT/HCPCS: 36415; 80053; 82306; 84443; 85025

== ENCOUNTER → 2020-05-27 09:33 | Outpatient (CLI) | payer OTHER, SELFPAY ==
[2020-05-27 10:40] LABS: Color, Urine Yellow (Yellow); Glucose, Dipstick Normal (Normal); Ketone-Dipstick Negative (Negative); Leukocyte Esterase-Dipstick Negative /ul (Negative); Nitrite-Dipstick Negative (Negative); Occult Blood-Urine Negative /ul (Negative); Protein-Dipstick 15 mg/dl (Negative); Urine Bilirubin Dipstick Negative (Negative); Urine Clarity Sl. Cloudy (Clear); Urine Urobilinogen Normal (Normal)
== END ==
PROVIDERS: PCP Family Medicine Geriatric Medicine
DX: Z01.818 Encounter for other preprocedural examination (principal); M54.16 Radiculopathy, lumbar region; M54.42 Lumbago with sciatica, left side; E66.01 Morbid (severe) obesity due to excess calories; Z68.41 Body mass index [BMI] 40.0-44.9, adult; E03.9 Hypothyroidism, unspecified; I10 Essential (primary) hypertension; Z87.39 Personal history of other diseases of the musculoskeletal system and connective tissue; Z79.52 Long term (current) use of systemic steroids
CPT/HCPCS: 81002

== ENCOUNTER → 2020-07-12 11:40 | Outpatient (CLI) | payer OTHER, SELFPAY ==
[2020-07-12 12:27] LABS: Absolute Lymphocyte Count 1.33 X10^3/uL (0.83-4.51); Absolute Neutrophil Count 5.2 X10^3/uL (2.0-7.7); Basophil# 0.08 X10^3/uL; Eosinophil# 0.19 X10^3/uL; Eosinophils% 2.5 % (0-5); Hemoglobin 12.3 g/dL (12.0-15.0); Lymphocyte # 1.33 X10^3/ul (4.0); Lymphocyte % 17.4 % (19-41); Mean Corp Hgb Conc 31.5 g/dL (32-36); Mean Corpuscular Hgb 27.5 pg (27.0-32.0); Mean Corpuscular Volume 87.1 fL (81-99); Monocyte# 0.88 X10^3/uL; Monocyte% 11.5 % (0-10); NRBC Flagged by Analyzer 0 % (0-5); Neutrophil # 5.15 X10^3/uL (2.7-7.7); Neutrophil % 67.2 % (47-70); Platelet Count 433 K/mm3 (150-450); RBC Distribution Width CV 13.8 % (11.6-14.6); RBC Distribution Width SD 43.8 fl (35.1-43.9); Red Blood Count 4.48 M/mm3 (4.2-5.4); White Blood Count 7.7 K/mm3 (4.4-11.0)
[2020-07-12 12:31] LABS: Anion Gap 6 (5-15); BUN 15 mg/dL (7-18); BUN/Creat Ratio 16.4 RATIO (10-20); Calcium,Total 8.6 mg/dL (8.5-10.1); Chloride 102 mmol/L (98-107); Creatinine, Serum 0.92 mg/dL (0.55-1.02); EST Glomerular Filtration Rate 67 mL/min (>60); Est Glom Filt Rate - Afr Amer 81 mL/min (>60); Glucose 113 mg/dL (74-106); Potassium 3.1 mmol/L (3.5-5.1); Sodium Level 134 mmol/L (136-145)
--- NOTE | 2020-07-12 13:30 | RAD_ITS ---
STUDY: X-RAY - ABDOMEN/PELVIS REASON FOR EXAM: Female, 60 years old. Nausea, trouble eating, difficulty urinating, recent back surgery TECHNIQUE: AP supine and upright views of the abdomen and pelvis. COMPARISON: None. FINDINGS: Normal visualized lung bases. There is a moderate amount of colonic fecal material. There is no demonstrated free abdominal air. The visualized liver, spleen and kidneys are grossly normal in size and morphology. Normal soft tissue structures. Mild dextroscoliosis. Prior laminectomy and fusion at the L4-L5 and L5-S1 levels. RAD/Abd Inc Decub and/or Erect IMPRESSION: Moderate degree of fecal material is seen throughout the colon. Electronically Signed: Kevin Odell, at 14:32 EST , Service support ,
== END ==
PROVIDERS: PCP Family Medicine Geriatric Medicine; Referring Provider Family Medicine Geriatric Medicine; Visit Provider Family Medicine Geriatric Medicine
DX: R53.83 Other fatigue (principal); K56.41 Fecal impaction; N39.0 Urinary tract infection, site not specified
CPT/HCPCS: 36415; 74019; 80048; 85025; 87086; 87088

== ENCOUNTER → 2020-07-13 10:11 | Outpatient (CLI) | payer OTHER, SELFPAY | PROVIDERS: PCP Family Medicine Geriatric Medicine; Referring Provider Family Medicine Geriatric Medicine; Visit Provider Family Medicine Geriatric Medicine | DX: R06.89 Other abnormalities of breathing (principal) | CPT/HCPCS: 87633; 87635; C9803; U0003 ==

== ENCOUNTER → 2020-08-01 12:00 | Outpatient (CLI) | payer OTHER, SELFPAY ==
--- NOTE | 2020-08-01 13:40 | RAD_ITS ---
STUDY: X-RAY - ABDOMEN/PELVIS REASON FOR EXAM: Female, 60 years old. Abdominal pain. Patient had back surgery in May 2017. TECHNIQUE: AP and lateral COMPARISON: None. FINDINGS: Normal visualized lung bases. There is an unremarkable bowel gas pattern. There is no demonstrated free abdominal air. The visualized liver, spleen and kidneys are grossly normal in size and morphology. Normal soft tissue structures. There is scoliosis of the lumbar spine with L4-S1 fusion. RAD/Abd Inc Decub and/or Erect IMPRESSION: No evidence of acute abdominal or pelvic process. Electronically Signed: Alexi Lee DO at 23:11 EST Tel [phone], Service support ,
[2020-08-01 16:46] LABS: Absolute Lymphocyte Count 1.57 X10^3/uL (0.83-4.51); Absolute Neutrophil Count 6.5 X10^3/uL (2.0-7.7); Basophil# 0.06 X10^3/uL; Basophil% 0.6 % (0-1); Eosinophil# 0.52 X10^3/uL; Eosinophils% 5.5 % (0-5); Hematocrit 42.4 % (37-47); Hemoglobin 12.8 g/dL (12.0-15.0); Lymphocyte # 1.57 X10^3/ul (4.0); Lymphocyte % 16.6 % (19-41); Mean Corp Hgb Conc 30.2 g/dL (32-36); Mean Corpuscular Volume 86.2 fL (81-99); Mean Platelet Vol. 11.4 fl (6.2-12.0); Monocyte# 0.77 X10^3/uL; Monocyte% 8.2 % (0-10); NRBC Flagged by Analyzer 0 % (0-5); Neutrophil # 6.47 X10^3/uL (2.7-7.7); Neutrophil % 68.7 % (47-70); Platelet Count 352 K/mm3 (150-450); RBC Distribution Width CV 14.2 % (11.6-14.6); RBC Distribution Width SD 44.6 fl (35.1-43.9); Red Blood Count 4.92 M/mm3 (4.2-5.4); White Blood Count 9.4 K/mm3 (4.4-11.0)
[2020-08-01 16:55] LABS: Anion Gap 9 (5-15); BUN 10 mg/dL (7-18); BUN/Creat Ratio 11.9 RATIO (10-20); Calcium,Total 9.2 mg/dL (8.5-10.1); Chloride 100 mmol/L (98-107); Creatinine, Serum 0.84 mg/dL (0.55-1.02); EST Glomerular Filtration Rate 74 mL/min (>60); Est Glom Filt Rate - Afr Amer 89 mL/min (>60); Glucose 144 mg/dL (74-106); Potassium 3.4 mmol/L (3.5-5.1); Sodium Level 134 mmol/L (136-145)
== END ==
PROVIDERS: PCP Family Medicine Geriatric Medicine; Referring Provider Family Medicine Geriatric Medicine; Visit Provider Family Medicine Geriatric Medicine
DX: R42 Dizziness and giddiness (principal); R10.9 Unspecified abdominal pain; N39.0 Urinary tract infection, site not specified
CPT/HCPCS: 36415; 74019; 80048; 85025; 87077; 87086; 87088; 87186

== ENCOUNTER → 2020-08-10 10:36 | Outpatient (CLI) | payer OTHER, SELFPAY ==
[2020-08-10 12:53] LABS: Anion Gap 7 (5-15); BUN 14 mg/dL (7-18); BUN/Creat Ratio 17.9 RATIO (10-20); Calcium,Total 9.8 mg/dL (8.5-10.1); Chloride 105 mmol/L (98-107); Creatinine, Serum 0.78 mg/dL (0.55-1.02); EST Glomerular Filtration Rate 80 mL/min (>60); Est Glom Filt Rate - Afr Amer 97 mL/min (>60); Glucose 125 mg/dL (74-106); Potassium 3.9 mmol/L (3.5-5.1); Sodium Level 139 mmol/L (136-145)
== END ==
PROVIDERS: PCP Family Medicine Geriatric Medicine; Visit Provider Family Medicine Geriatric Medicine
DX: E87.6 Hypokalemia (principal)
CPT/HCPCS: 36415; 80048

== ENCOUNTER → 2020-09-07 15:23 | Outpatient (CLI) | payer OTHER, SELFPAY ==
[2020-09-07 17:55] LABS: Absolute Lymphocyte Count 1.13 X10^3/uL (0.83-4.51); Absolute Neutrophil Count 6.1 X10^3/uL (2.0-7.7); Basophil# 0.06 X10^3/uL; Basophil% 0.7 % (0-1); Eosinophils% 1.2 % (0-5); Hematocrit 41.3 % (37-47); Hemoglobin 12.2 g/dL (12.0-15.0); Lymphocyte # 1.13 X10^3/ul (4.0); Lymphocyte % 13.6 % (19-41); Mean Corp Hgb Conc 29.5 g/dL (32-36); Mean Corpuscular Hgb 25.2 pg (27.0-32.0); Mean Corpuscular Volume 85.2 fL (81-99); Mean Platelet Vol. 10.5 fl (6.2-12.0); Monocyte# 0.89 X10^3/uL; Monocyte% 10.7 % (0-10); NRBC Flagged by Analyzer 0 % (0-5); Neutrophil # 6.08 X10^3/uL (2.7-7.7); Neutrophil % 73.4 % (47-70); Platelet Count 421 K/mm3 (150-450); RBC Distribution Width CV 15.7 % (11.6-14.6); RBC Distribution Width SD 48.6 fl (35.1-43.9); Red Blood Count 4.85 M/mm3 (4.2-5.4); White Blood Count 8.3 K/mm3 (4.4-11.0)
[2020-09-07 18:51] LABS: ALB/GLOB Ratio 0.7 RATIO (0.9-2.4); AST(SGOT) 10 U/L (15-37); Alanine Aminotransfer ALT/SGPT 16 U/L (13-56); Albumin, Serum 2.8 g/dL (3.2-5.0); Alkaline Phosphatase 73 U/L (45-117); Anion Gap 7 (5-15); BUN 11 mg/dL (7-18); BUN/Creat Ratio 15.3 RATIO (10-20); Calcium,Total 9.1 mg/dL (8.5-10.1); Chloride 102 mmol/L (98-107); Creatinine, Serum 0.72 mg/dL (0.55-1.02); EST Glomerular Filtration Rate 88 mL/min (>60); Est Glom Filt Rate - Afr Amer 107 mL/min (>60); Globulin 4.1 g/dL (2.2-4.2); Glucose 125 mg/dL (74-106); Protein, Total 6.9 g/dL (6.4-8.2); Sodium Level 135 mmol/L (136-145); Thyroid Stim Hormone (TSH) 2.47 uIU/mL (0.358-3.74)
[2020-09-08 07:33] LABS: SARS-COV-2 TOTAL ABS Reactive (Nonreactive)
== END ==
PROVIDERS: PCP Family Medicine Geriatric Medicine; Visit Provider Family Medicine Geriatric Medicine
DX: R53.83 Other fatigue (principal)
CPT/HCPCS: 36415; 80053; 84443; 85025; 86769; 87040

== ENCOUNTER → 2020-09-09 14:32 | Outpatient (CLI) | payer OTHER, SELFPAY | PROVIDERS: PCP Family Medicine Geriatric Medicine; Referring Provider Family Medicine Geriatric Medicine; Visit Provider Family Medicine Geriatric Medicine | DX: R68.83 Chills (without fever) (principal) | CPT/HCPCS: 87633; 87635; C9803; U0005; U0003 ==

== ENCOUNTER → 2020-10-28 12:44 | Outpatient (CLI) | payer OTHER, SELFPAY ==
--- NOTE | 2020-10-28 12:50 | VDLE_ITS ---
Reason For Study: Edema RIGHT LEFT GSV is normal. GSV is normal. CFV is compressible, spontaneous, phasic, CFV is compressible, spontaneous, phasic, competent and demonstrates normal competent, and demonstrates normal augmentation. augmentation. FV is compressible, spontaneous, phasic, FV is compressible, spontaneous, phasic, competent and demonstrates normal competent and demonstrates normal augmentation. augmentation. POP V is compressible, spontaneous, phasic, POP V is compressible, spontaneous, phasic, competent and demonstrates normal competent and demonstrates normal augmentation. augmentation. T/P Trunk is compressible. T/P Trunk is compressible. PTV is compressible. PTV is compressible. RT PerV is compressible. LT PerV is compressible. Procedure This is a venous duplex using B-mode, color flow and spectral Doppler. Exam performed in department. A preliminary report was called and/or faxed to [facility]. VL/Venous Duplex US - Adam Extrem Interpretation Summary Deep veins of the lower extremities are bilaterally patent and compressible seg mentally. There is no evidence of deep vein thrombosis on either side. Valvular competence appears in tact within the proximal deep venous systems bilaterally. The great saphenous veins appear bila terally patent and compressible segmentally. Ordering Physician: Valente Marie Referring Physician: Valente Marie Chi Performed By: Filomena Contreras RVT
--- NOTE | 2020-10-28 12:52 | ART_ITS ---
Reason For Study: PAOD Procedure A bilateral lower extremity continuous wave Doppler with analog waveform analysis and ankle brachial indexes. Left Segmental Pressures Left brachial= 143mmHg. Left posterior tibial artery = 178mmHg. Left dorsalis pedis artery = 162mmHg. The left dorsalis pedis waveforms are triphasic. The left posterior tibial artery waveforms are triphasic. Right Segmental Pressures Right brachial= 139mmHg. Right posterior tibial artery = 174mmHg. Right dorsalis pedis artery = 167mmHg. The right dorsalis pedis waveforms are triphasic. The right posterior tibial artery waveforms are triphasic. Indices The right ankle brachial index by the dorsalis pedis is 1.17. The right ankle brachial index by the posterior tibial artery is 1.22. The left ankle brachial index by the dorsalis pedis is 1.13. The left ankle brachial index by the posterior tibial artery is 1.24. VL/Ankle Brachial Index Interpretation Summary Triphasic Doppler waveforms are noted at ankle level bilaterally. Resting ankle -brachial indices are normal bilaterally. There is no evidence of significant arterial occlusive disease in the lower ext remities bilaterally. Ordering Physician: Valente Marie Referring Physician: Valente Marie Chi Performed By: Filomena Contreras RVT
== END ==
PROVIDERS: PCP Family Medicine Geriatric Medicine; Referring Provider Family Medicine Geriatric Medicine; Visit Provider Family Medicine Geriatric Medicine
DX: R60.9 Edema, unspecified (principal); I73.9 Peripheral vascular disease, unspecified
CPT/HCPCS: 93922; 93970

== ENCOUNTER → 2020-11-05 08:37 | Outpatient (CLI) | payer OTHER, SELFPAY ==
--- NOTE | 2020-11-05 08:39 | MRI_ITS ---
STUDY: MRI LEFT KNEE REASON FOR EXAM: Female, 60 years old. Knee pain, abnormal x-ray TECHNIQUE: Standardized fat and water weighted pulse sequences were obtained in all 3 orthogonal planes. COMPARISON: X-ray 09/27/2020 FINDINGS: 1 cm trizonal radial tear of the root of the posterior horn the medial meniscus with extrusion of the body. There is diffuse, full thickness articular cartilage loss of the medial femorotibial compartment. There is reactive marrow edema of the medial femoral condyle and tibial plateau. Normal medial collateral ligamentous complex (MCL). There is tenosynovitis of the semi-membranous tendon. Normal lateral meniscus. Normal hyaline cartilage of the lateral femorotibial compartment. Normal lateral femoral condyle and tibial plateau. Normal proximal tibiofibular articulation. Normal lateral collateral (fibular) ligament. Normal popliteus tendon. Normal biceps femoris tendon. Normal anterior cruciate ligament (ACL). Normal posterior cruciate ligament (PCL). Prominent meniscal femoral ligament of [place] Normal congruent patellofemoral articulation. Normal hyaline cartilage of the patellofemoral compartment. Normal medial and lateral patellar retinaculum. Normal quadriceps tendon. Normal patellar tendon. Normal Hoffa''s fat pad. There is a small volume joint effusion. Moderate prepatellar soft tissue swelling The soft tissues are unremarkable. There is a 1.8 cm round lesion of predominantly fat intensity with T2 dark shaped hyperintense areas with thin geographic margins within the posterior aspect of the proximal tibia near the origin the posterior cruciate ligament felt to represent an intraosseous lipoma or chronic stress reaction from traction by the posterior cruciate ligament. Follow-up MRI is recommended in one year to document stability. MRI/Lower Ext Joint Only (Routine) IMPRESSION: 1. 1 cm trizonal radial tear of the root of the posterior horn the medial meniscus with extrusion of the body, full-thickness chondral loss and subchondral edema of the medial femoral condyle medial tibial plateau. 2. Tenosynovitis of the semimembranosus tendon. 3. Small joint effusion. 4. Moderate prepatellar soft tissue swelling. 5. 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 Follow-up MRI is recommended in one year to document stability. Electronically Signed: Mike Steiner MD at 11:35 EDT Tel , Service support ,
== END ==
PROVIDERS: PCP Family Medicine Geriatric Medicine; Referring Provider Orthopaedic Surgery; Visit Provider Orthopaedic Surgery
DX: M25.562 Pain in left knee (principal); D49.2 Neoplasm of unspecified behavior of bone, soft tissue, and skin
CPT/HCPCS: 73721

== ENCOUNTER → 2020-12-21 10:25 | Outpatient (CLI) | payer OTHER, SELFPAY ==
[2020-12-21 12:14] LABS: Absolute Lymphocyte Count 1.78 X10^3/uL (0.83-4.51); Absolute Neutrophil Count 1.9 X10^3/uL (2.0-7.7); Basophil# 0.07 X10^3/uL; Basophil% 1.5 % (0-1); Eosinophil# 0.11 X10^3/uL; Eosinophils% 2.4 % (0-5); Hematocrit 45.5 % (37-47); Hemoglobin 14.1 g/dL (12.0-15.0); Lymphocyte # 1.78 X10^3/ul (0.83-4.51); Lymphocyte % 38.4 % (19-41); Mean Corpuscular Hgb 26.9 pg (27.0-32.0); Mean Corpuscular Volume 86.7 fL (81-99); Mean Platelet Vol. 11.4 fl (6.2-12.0); Monocyte# 0.76 X10^3/uL; Monocyte% 16.4 % (0-10); NRBC Flagged by Analyzer 0 % (0-5); Neutrophil % 41.1 % (47-70); Platelet Count 271 K/mm3 (150-450); RBC Distribution Width CV 16.7 % (11.6-14.6); RBC Distribution Width SD 53.1 fl (35.1-43.9); Red Blood Count 5.25 M/mm3 (4.2-5.4); White Blood Count 4.6 K/mm3 (4.4-11.0)
[2020-12-21 12:31] LABS: Vitamin D,25 Hydroxy 37.6 ng/mL
[2020-12-21 12:35] LABS: AST(SGOT) 14 U/L (15-37); Alanine Aminotransfer ALT/SGPT 38 U/L (13-56); Albumin, Serum 3.3 g/dL (3.2-5.0); Alkaline Phosphatase 94 U/L (45-117); Anion Gap 6 (5-15); BUN 14 mg/dL (7-18); BUN/Creat Ratio 18.2 RATIO (10-20); Calcium,Total 8.6 mg/dL (8.5-10.1); Chloride 106 mmol/L (98-107); Creatinine, Serum 0.77 mg/dL (0.55-1.02); EST Glomerular Filtration Rate 82 mL/min (>60); Est Glom Filt Rate - Afr Amer 99 mL/min (>60); Globulin 3.4 g/dL (2.2-4.2); Glucose 97 mg/dL (74-106); Potassium 3.9 mmol/L (3.5-5.1); Protein, Total 6.7 g/dL (6.4-8.2); Sodium Level 141 mmol/L (136-145); Thyroid Stim Hormone (TSH) 5.35 uIU/mL (0.358-3.74)
== END ==
PROVIDERS: PCP Family Medicine Geriatric Medicine; Visit Provider Family Medicine Geriatric Medicine
DX: R53.83 Other fatigue (principal); E55.9 Vitamin D deficiency, unspecified
CPT/HCPCS: 36415; 80053; 82306; 84443; 85025

== ENCOUNTER → 2021-01-06 17:51 | Outpatient (CLI) | payer OTHER, SELFPAY ==
--- NOTE | 2021-01-06 17:52 | MRI_ITS ---
HISTORY: Increased pain x 10 MONTHS, SHOOTING THROUGH FEET -- with metal suppression. TECHNIQUE: Multiplanar and multisequence MR images of the lumbar spine without and with contrast. IV Contrast dosage and agent: 20 cc Dotarem. # of images incl. paperwork: 164. COMPARISON: XR 08/30/2020, MR 09/03/2017. FINDINGS: VERTEBRAE: Vertebral body heights maintained. Degenerative endplate changes particularly at L2-3. Artifact from L4-S1 posterior spinal fusion hardware with interbody fusion hardware and decompressive laminectomies also noted. ALIGNMENT: No significant anterior or posterior subluxation. Mild scoliosis. SPINAL CANAL: Normal morphology and position of the conus at T12-L1 without enhancing lesion. No gross epidural collection or enhancing intradural extramedullary mass. SOFT TISSUES: Posterior subcutaneous and intramuscular edema with a 1 x 3.3 x 3.4 cm peripherally enhancing fluid collection along the posterior margin of the thecal sac at the L4-5 decompressive laminectomy site. INTERVERTEBRAL DISCS: Multilevel degenerative changes with posterior disc bulge osteophyte complexes and facet arthropathy. L1-2: No significant central canal stenosis. Mild bilateral foraminal narrowing. L2-3:Right paracentral disc extrusion and inferior migration with probable impingement of the left L3 nerve root, mild central canal stenosis, and mild bilateral foraminal narrowing. L3-4: Mild central canal stenosis and bilateral foraminal narrowing. L4-5: Residual degenerative change with very mild bilateral foraminal narrowing. No central canal stenosis. L5-S1: Residual degenerative change without significant central canal stenosis or foraminal narrowing. MRI/Spine Lumbar W/WO Contrast IMPRESSION: Increased degenerative disc disease of L2-3 with a right paracentral disc extrusion and inferior migration likely resulting in nerve root impingement. L4-5 posterior spinal fusion with a small posterior fluid collection at the decompressive laminotomy site, likely seroma. Pseudo-meningocele or abscess could have a similar appearance. Clinical correlation recommended. L5-S1 posterior spinal fusion again noted. at 1030 Reported and signed by: Judy Chapa MD Electronically Signed: Judy Chapa MD at 10:29 EDT Tel , Service support ,
== END ==
PROVIDERS: PCP Family Medicine Geriatric Medicine; Referring Provider Orthopaedic Surgery; Visit Provider Orthopaedic Surgery
DX: M54.5 Low back pain (principal); Z98.1 Arthrodesis status
CPT/HCPCS: 72158; A9575

== ENCOUNTER → 2021-02-06 16:37 | Outpatient (CLI) | payer OTHER, SELFPAY ==
[2021-01-11 14:30] VITALS: BMI 38.0
[2021-02-06 17:38] LABS: Thyroid Stim Hormone (TSH) 2.22 uIU/mL (0.358-3.74)
== END ==
PROVIDERS: PCP Family Medicine Geriatric Medicine; Visit Provider Family Medicine Geriatric Medicine
DX: E03.9 Hypothyroidism, unspecified (principal)
CPT/HCPCS: 36415; 84443

== ENCOUNTER → 2021-02-23 15:15 | Outpatient (CLI) | payer OTHER, SELFPAY ==
[2021-01-11 14:30] VITALS: BMI 38.0
--- NOTE | 2021-02-23 15:17 | CT_ITS ---
STUDY: CTA CHEST REASON FOR EXAM: Female, 60 years old. SOB RADIATION DOSAGE (If Supplied By Facility): CTDIvol = ( 12.62 ) mGy, DLP = ( 500.84 ) mGycm TECHNIQUE: The examination was performed with the intravenous administration of IV 100mL Isovue-370. Post-processing of the angiographic images was performed, with multiplanar reformation and 3D reconstruction. Individualized dose optimization techniques were used for this CT. COMPARISON: 08/19/2013 FINDINGS: Normal enhancement of the main pulmonary artery and right and left pulmonary arteries. Normal enhancement of the bilateral peripheral pulmonary arteries. There is no demonstrated pulmonary embolism. Normal thoracic aorta and visualized great vessels. There is no demonstrated aortic dissection. Normal heart and pericardium. Normal mediastinum. Normal hilar regions. Normal visualized trachea and bronchi. The lungs are well expanded. Normal pulmonary parenchyma. Normal pleura. Normal chest wall structures. Normal osseous structures. Normal visualized upper abdomen. CT/CTA Chest W/WO Contrast IMPRESSION: Normal CTA chest examination, without a demonstrated pulmonary embolism or arterial dissection. Electronically Signed: Mike Steiner MD at 17:06 EDT Tel , Service support ,
== END ==
PROVIDERS: PCP Family Medicine Geriatric Medicine; Referring Provider Family Medicine Geriatric Medicine; Visit Provider Family Medicine Geriatric Medicine
DX: R06.02 Shortness of breath (principal)
CPT/HCPCS: 71275; Q9967

== ENCOUNTER → 2021-04-20 15:17 | Outpatient (CLI) | payer OTHER, SELFPAY ==
[2021-04-20 16:08] LABS: Absolute Lymphocyte Count 1.29 X10^3/uL (0.83-4.51); Absolute Neutrophil Count 2.9 X10^3/uL (2.0-7.7); Basophil# 0.03 X10^3/uL; Basophil% 0.6 % (0-1); Eosinophil# 0.35 X10^3/uL; Eosinophils% 6.6 % (0-5); Hematocrit 45.7 % (37-47); Hemoglobin 14.6 g/dL (12.0-15.0); Lymphocyte # 1.29 X10^3/ul (0.83-4.51); Lymphocyte % 24.2 % (19-41); Mean Corp Hgb Conc 31.9 g/dL (32-36); Mean Corpuscular Hgb 28.7 pg (27.0-32.0); Mean Platelet Vol. 10.5 fl (6.2-12.0); Monocyte# 0.77 X10^3/uL; Monocyte% 14.5 % (0-10); NRBC Flagged by Analyzer 0 % (0-5); Neutrophil # 2.87 X10^3/uL (2.7-7.7); Neutrophil % 53.9 % (47-70); Platelet Count 271 K/mm3 (150-450); RBC Distribution Width CV 14.1 % (11.6-14.6); RBC Distribution Width SD 46.4 fl (35.1-43.9); Red Blood Count 5.08 M/mm3 (4.2-5.4); White Blood Count 5.3 K/mm3 (4.4-11.0)
[2021-04-20 17:02] LABS: ALB/GLOB Ratio 0.7 RATIO (0.9-2.4); AST(SGOT) 13 U/L (15-37); Alanine Aminotransfer ALT/SGPT 24 U/L (13-56); Albumin, Serum 2.8 g/dL (3.2-5.0); Alkaline Phosphatase 79 U/L (45-117); Anion Gap 8 (5-15); BUN 7 mg/dL (7-18); BUN/Creat Ratio 10.1 RATIO (10-20); Calcium,Total 8.6 mg/dL (8.5-10.1); Chloride 104 mmol/L (98-107); Creatinine, Serum 0.69 mg/dL (0.55-1.02); EST Glomerular Filtration Rate 92 mL/min (>60); Est Glom Filt Rate - Afr Amer 112 mL/min (>60); Globulin 3.8 g/dL (2.2-4.2); Glucose 103 mg/dL (74-106); Potassium 3.7 mmol/L (3.5-5.1); Protein, Total 6.6 g/dL (6.4-8.2); Sodium Level 140 mmol/L (136-145)
== END ==
PROVIDERS: PCP Family Medicine Geriatric Medicine; Visit Provider Family Medicine Geriatric Medicine
DX: R10.9 Unspecified abdominal pain (principal); N39.0 Urinary tract infection, site not specified
CPT/HCPCS: 36415; 80053; 85025; 87086; 87088

== ENCOUNTER → 2021-04-20 15:58 | Outpatient (CLI) | payer OTHER, SELFPAY ==
--- NOTE | 2021-04-20 15:59 | CT_ITS ---
INDICATION: ABD PAIN EXAMINATION: CT Abdomen And Pelvis W/ Contrast Injection TECHNIQUE: Helically acquired images were obtained of the abdomen and pelvis after IV contrast. A radiation dose optimization technique was used for this scan. IV Contrast dosage and agent: Oral and amp; IV Gastrografin and amp; 100mL Isovue-370 Oral contrast: Yes. COMPARISON: None. FINDINGS: Visualized lung bases: Unremarkable Liver: Unremarkable Gallbladder: Unremarkable Spleen: Unremarkable Pancreas: Unremarkable Adrenal Glands: Unremarkable Kidneys: Unremarkable Vasculature: Mild scattered aortoiliac atherosclerotic calcifications. GI Tract: Scattered colonic diverticula. Short segment wall thickening of the sigmoid colon which only mesenteric fat stranding. No focal fluid collection or free air. Lymphadenopathy: None Peritoneum: No ascites. Bladder: Unremarkable Reproductive organs: Unremarkable Bones/Soft tissues: There are diffuse degenerative changes of the spine. Postsurgical changes L4-S1. CT/Abdomen/Pelvis WITH Contrast IMPRESSION: Acute sigmoid diverticulitis. No focal fluid collection or free air. Electronically Signed: Jag Herrera MD at 18:36 EDT Tel , Service support ,
== END ==
PROVIDERS: PCP Family Medicine Geriatric Medicine; Referring Provider Family Medicine Geriatric Medicine; Visit Provider Family Medicine Geriatric Medicine
DX: R10.9 Unspecified abdominal pain (principal); N39.0 Urinary tract infection, site not specified
CPT/HCPCS: 74177; Q9967; A4216

== ENCOUNTER → 2021-05-22 12:59 | Outpatient (CLI) | payer OTHER, SELFPAY | PROVIDERS: PCP Family Medicine Geriatric Medicine; Referring Provider Family Medicine Geriatric Medicine; Visit Provider Family Medicine Geriatric Medicine | DX: R68.83 Chills (without fever) (principal) | CPT/HCPCS: 87635; 87804; 87807; C9803; U0005; U0003 ==

== ENCOUNTER → 2021-07-06 15:16 | Outpatient (CLI) | payer OTHER, SELFPAY ==
[2021-07-06 15:46] LABS: Basophil# 0.04 X10^3/uL; Basophil% 0.6 % (0-1); Eosinophil# 0.62 X10^3/uL; Eosinophils% 8.9 % (0-5); Hematocrit 45.7 % (37-47); Hemoglobin 14.7 g/dL (12.0-15.0); Lymphocyte % 34.6 % (19-41); Mean Corp Hgb Conc 32.2 g/dL (32-36); Mean Corpuscular Hgb 28.9 pg (27.0-32.0); Mean Platelet Vol. 10.6 fl (6.2-12.0); Monocyte# 0.84 X10^3/uL; Monocyte% 12.1 % (0-10); NRBC Flagged by Analyzer 0 % (0-5); Neutrophil # 3.02 X10^3/uL (2.7-7.7); Neutrophil % 43.5 % (47-70); Platelet Count 306 K/mm3 (150-450); RBC Distribution Width CV 14.2 % (11.6-14.6); RBC Distribution Width SD 46.9 fl (35.1-43.9); Red Blood Count 5.08 M/mm3 (4.2-5.4); White Blood Count 6.9 K/mm3 (4.4-11.0)
[2021-07-06 16:05] LABS: Vitamin D,25 Hydroxy 30.1 ng/mL
[2021-07-06 16:20] LABS: ALB/GLOB Ratio 0.9 RATIO (0.9-2.4); AST(SGOT) 14 U/L (15-37); Alanine Aminotransfer ALT/SGPT 31 U/L (13-56); Albumin, Serum 3.1 g/dL (3.2-5.0); Alkaline Phosphatase 105 U/L (45-117); Anion Gap 9 (5-15); BUN 16 mg/dL (7-18); BUN/Creat Ratio 19.6 RATIO (10-20); Calcium,Total 8.8 mg/dL (8.5-10.1); Chloride 109 mmol/L (98-107); Creatinine, Serum 0.82 mg/dL (0.55-1.02); EST Glomerular Filtration Rate 76 mL/min (>60); Est Glom Filt Rate - Afr Amer 92 mL/min (>60); Globulin 3.5 g/dL (2.2-4.2); Glucose 105 mg/dL (74-106); Potassium 3.7 mmol/L (3.5-5.1); Protein, Total 6.6 g/dL (6.4-8.2); Sodium Level 143 mmol/L (136-145); Thyroid Stim Hormone (TSH) 1.48 uIU/mL (0.358-3.74)
== END ==
PROVIDERS: PCP Family Medicine Geriatric Medicine; Visit Provider Family Medicine Geriatric Medicine
DX: E55.9 Vitamin D deficiency, unspecified (principal); I10 Essential (primary) hypertension
CPT/HCPCS: 36415; 80053; 82306; 84443; 85025

== ENCOUNTER 2021-07-28 07:46 | Day surgery (SDC) | payer OTHER, SELFPAY ==
[2021-07-28] VITALS (7 sets, daily range): BP systolic 130–165; BP diastolic 83–96; PULSE 89–100; RESP 16; TEMP 36–36.6; O2SAT 95–98; BMI 43.9
--- NOTE | 2021-07-28 | COLBX_PTH ---
PATIENT: ATUL DUPREE LOC: EN U#:[id number] AGE/SX: 61/F ROOM: RE07/28/[address]: Dr. Eleazar Romano MD : 1960 BED: DIS: 07/28/2021 SPEC #: [id number] RECD: 07/28/21 09:44 STATUS: ANNA RESagrario #: [id number] JACEK: 07/28/21 00:[address]: Eleazar Romano DEPT: SURGICAL PATHOLOGY RECD BY: Caitlyn Joyner ENTERED: 07/28/21 11:31 SP TYPE: COLON BX OTHR DR: Dr. Valente Marie MD Tissues: Sigmoid colon biopsy Procedures: Surgery Specimen Level IV HEADER OPERATION: Colonoscopy (MAC) PRE-OP DIAGNOSIS: Change in bowel habits, LLQ abdominal pain TISSUE SUBMITTED: Sigmoid polyps MICROSCOPIC DIAGNOSIS Sigmoid polyps, biopsy: Fragments of hyperplastic polyp. AM:rex 07/31/2021 MICROSCOPIC DESCRIPTION Slides are reviewed. GROSS DESCRIPTION Received in fixative is one container labeled with the patient's name and designated sigmoid polyps. The specimen consists of a hirsch-pink polyp measuring 0.5 x 0.5 x 0.4 cm. Also present in the container are minute fragments of hirsch soft tissue measuring 0.2 x 0.1 x 0.1 cm. The entire specimen is submitted in one cassette. / SJ:rg 07/28/2021 TC:5 CPT: 41785
[2021-07-28] MEDS: Lactated Ringers 1,000 ML 15 ML IV (08:17)
--- NOTE | 2021-07-28 08:50 | PCM.HP.BLA ---
History and Physical Date of Admission: 07/28/21 Intake Vital Signs 07/18/21 14:30 Height 5 ft Weight: 234 lb 8 oz BMI 45.8 BP 159/92 H Blood Pressure Location Rt brachial Position Sitting Respiration 18 Pulse 91 Pulse Source Monitor Temp 98.1 F Temp Source Temporal Pulse Oximetry (%) 97 Oxygen Delivery Method room air Intake Visit Reasons: Change in bowel habits Chief Complaint: change in bowel habits Organisational Psychologist Required: No Is patient in pain?: No Allergies bee pollen Allergy (Severe, Verified 07/18/21 14:31) Anaphylaxis tetracycline Allergy (Verified 07/18/21 14:31) Unknown Medications calcium carbonate 600 mg calcium (1,500 mg) tablet 600 mg PO BID tab 05/15/18 [History Confirmed 07/18/21] cholecalciferol (vitamin D3) 50 mcg (2,000 unit) capsule 50 mcg PO DAILY 03/15/20 [History Confirmed 07/18/21] leflunomide 20 mg tablet 20 mg PO DAILY 03/15/20 [History Confirmed 07/18/21] potassium chloride 10 mEq tablet,extended release 10 meq PO DAILY tab 09/27/20 [History Confirmed 07/18/21] prednisone 10 mg tablet 10 mg PO tab 09/27/20 [History Confirmed 07/18/21] duloxetine 60 mg capsule,delayed release 60 mg PO DAILY cap 01/11/21 [History Confirmed 07/18/21] levothyroxine 137 mcg tablet 137 mcg PO DAILY tab 01/11/21 [History Confirmed 07/18/21] etanercept 50 mg/mL (1 mL) subcutaneous pen injector mg SUBCUT QWEEK ml 03/17/21 [History Confirmed 07/18/21] gabapentin 600 mg tablet 600 mg PO TID tab 03/17/21 [History Confirmed 07/18/21] naproxen 500 mg tablet ea PO 03/17/21 [History Confirmed 07/18/21] pantoprazole 40 mg tablet,delayed release ea PO 03/17/21 [History Confirmed 07/18/21] [facility] Medical History (Updated 07/18/21 @ 14:[address] Eleazar Romano MD) Arthritis Thyroid disease Surgical History H/O tubal ligation History of carpal tunnel release History of lumbar surgery Family History Mother Diabetes COPD (chronic obstructive pulmonary disease) Father Myocardial infarction Social History adopted: No household members: spouse housing: house number of children: 2 current occupational status: employed pets and animals: Yes Smoking Status: Never smoker second hand exposure: No alcohol intake: never substance use type: does not use seatbelt use: always do you feel safe at home: Yes HPI HPI HPI: ATUL DUPREE, is a 61 F who presents to the office today for abdominal pain and change in bowel function. Patient reports that for the last few months she has been having abdominal pain especially after she eats. She says it feels crampy in nature. She does not have any nausea or vomiting. She also reports that she has had loose stool and has some incontinence. ROS General General: Yes weight change and fatigue; No appetite, colon cancer, breast cancer or weakness HEENT HEENT: No difficulty swallowing, eye injury, eye surgery, swollen glands or hoarseness Endo Endocrine: Yes thyroid disease; No diabetes mellitus, thyroid cancer, Hair loss, heat intolerance or cold intolerance Skin Skin: No rash or changing moles Musc Musculoskeletal: Yes back problems, arthritis and rheumatoid arthritis; No gout or joint pain Cardio Cardiovascular: No murmur, pacemaker, heart disease, atrial fibrillation, high blood pressure, heart attack, heart stent, palpitations, shortness of breat with exertion or chest pain Psych Psychiatric: Yes depression; No anxiety or hearing voices Resp Respiratory: No shortness of breath, No sleep apnea, No cough, No COPD, No asthma, No emphysema and No wheezing Gastro Gastrointestinal: Yes abdominal pain, Yes nausea or vomiting, Yes diarrhea, No constipation, No blood in stool, Yes acid reflux, Yes hemorrhoids, No ulcers, No gallbladder problem and No black,tarry stools Dimitrios Hematologic: No blood thinners, No blood disorders, No bleeding, No anemia and No blood clots Neuro Neurologic: No system reviewed and no additional complaints, except as documented, No as per HPI, No abnormal gait, No abnormal hearing, No abnormal movements, No abnormal speech, No behavioral changes, No burning sensations, No confusion, No convulsions, No disequilibrium, No dizziness, No localized weakness, No frequent falls, No headache(s), No lack of coordination, No loss of vision, No memory loss, No numbness, No other visual disturbances, No radicular pain, No restless legs, No sensory deficit, No syncope, Yes tingling, No tremor(s), No weakness and No other Exam Const General: cooperative Orientation: alert and oriented x3 HENMT Head: normal to inspection Neck Neck: normal visual inspection and full ROM Chest Chest palpation & inspection: normal inspection of the chest Resp Effort & Inspection: normal respiratory effort Auscultation: clear to auscultation bilaterally Cardio Rate: regular rate Rhythm: regular rhythm GI Inspection: non-distended Palpation: soft and nontender Skin General: no rashes or lesions noted Neuro General: patient alert and patient oriented x3 Extrem General: full ROM Psych Appearance: grossly normal Mental Status: mental status grossly normal Assessment and Plan Assessment and Plan (1) Change in bowel habits: Status: Acute (2) LLQ abdominal pain: Status: Acute Orders: Orders: Colonoscopy Today R19.4, R10.32 Plan - Dr. Eleazar Romano MD: The patient reports postprandial pain which is crampy in nature. The only imaging [place] is a CT from March that showed acute diverticulitis. I did discuss this with the patient and the possibility of diverticular stricture. It is possible that she is having a stricture causing partial obstruction and the crampy abdominal pain is the stool trying to pass the stricture. It is also possible that the liquid stool that is able to pass the stricture is causing leakage. I will start with colonoscopy to evaluate the sigmoid. It is possible she will need a sigmoid colectomy. I discussed this briefly with the patient as well. I explained endoscopy in detail to the patient. I explained the risks including but not limited to stroke or heart attack with anesthesia, perforation of the GI tract, bleeding, infection. I explained that any of these could necessitate further emergency surgery. The patient understands and all questions were answered sufficiently. The patient wishes to proceed with procedure. Eleazar Romano MD Pager: [facility] [address] [place] [address], [address] [place] [address] Office: I have re-examined the patient. There are no clinical changes since date of exam.
--- NOTE | 2021-07-28 09:26 | OP.COLON_ITS ---
Patient Name: Bhavana Waters Procedure Date: 07/28/2021 7:20 AM Date of : 1960 Age: 61 Procedure: Colonoscopy Indications: Abdominal pain in the left lower quadrant, Change in stool caliber Providers: Eleazar Romano MD Medicines: Monitored Anesthesia Care Patient Profile: This is a 61 year old female. Refer to note in patient chart for documentation of history and physical. Last Colonoscopy: 5 years ago. Complications: No immediate complications. Estimated blood loss: Minimal. Procedure: Pre-Anesthesia Assessment: - Prior to the procedure, a History and Physical was performed, and patient medications and allergies were reviewed. The patient's tolerance of previous anesthesia was also reviewed. The risks and benefits of the procedure and the sedation options and risks were discussed with the patient. All questions were answered, and informed consent was obtained. Prior Anticoagulants: The patient has taken no previous anticoagulant or antiplatelet agents. After reviewing the risks and benefits, the patient was deemed in satisfactory condition to undergo the procedure. After I obtained informed consent, the scope was passed under direct vision. Throughout the procedure, the patient's blood pressure, pulse, and oxygen saturations were monitored continuously. The colonoscope was introduced through the anus and advanced to the cecum, identified by appendiceal orifice and ileocecal valve. The colonoscopy was performed without difficulty. The patient tolerated the procedure well. The quality of the bowel preparation was good. Scope In: 9:10:21 AM Scope Withdrawal Time 0 hours 9 minutes 16 seconds Scope Out: 9:23:54 AM Total Procedure Duration Time 0 hours 13 minutes 33 seconds Findings: Two polyps were found in the sigmoid colon. These polyps were removed with a hot snare. Resection and retrieval were complete. The exam was otherwise without abnormality on direct and retroflexion views. Impression: - Two polyps in the sigmoid colon, removed with a hot snare. Resected and retrieved. - The examination was otherwise normal on direct and retroflexion views. Recommendation: - Discharge patient to home. - Resume previous diet. - Continue present medications. - Await pathology results. - Repeat colonoscopy in 5 years for surveillance of multiple polyps. Procedure Code(s): --- Professional --- 69879, Colonoscopy, flexible; with removal of tumor(s), polyp(s), or other lesion(s) by snare technique Diagnosis Code(s): --- Professional --- D12.5, Benign neoplasm of sigmoid colon R10.32, Left lower quadrant pain R19.5, Other fecal abnormalities CPT copyright 2017 [employer]. All rights reserved. The codes documented in this report are preliminary and upon executive coach review may be revised to meet current compliance requirements. Eleazar Romano MD 07/28/2021 9:26:19 AM This report has been signed electronically. Number of Addenda: 0 Note Initiated On: 07/28/2021 7:20 AM
--- NOTE | 2021-07-28 09:27 | OP.CCLET_ITS ---
07/28/2021 Valente Marie MD [address] [place] [address] Re : Colonoscopy procedure for Bhavana Waters Dear Dr. Marie This procedure was performed on Wednesday, July 28, 2021. My impressions and recommendations are as follows: Impressions : - Two polyps in the sigmoid colon, removed with a hot snare. Resected and retrieved. - The examination was otherwise normal on direct and retroflexion views. Recommendations : - Discharge patient to home. - Resume previous diet. - Continue present medications. - Await pathology results. - Repeat colonoscopy in 5 years for surveillance of multiple polyps. My findings are described in the full procedure note, which is enclosed. If I can be of further assistance, please feel free to contact me at Doctor phone number(s): , Work: . Sincerely, Eleazar Romano MD 07/28/2021 9:26:19 AM This report has been signed electronically.
== END 2021-07-28 23:59 | disposition home or self-care (01) ==
LOC: EN 07:47 → AC 07:49
PROVIDERS: PCP Family Medicine Geriatric Medicine; Referring Provider Family Medicine Geriatric Medicine; Visit Provider Surgery
PROC: 0DJD8ZZ Inspection of Lower Intestinal Tract, Via Natural or Artificial Opening Endoscopic (ICD-10-PCS; CPT 45378; principal; 2021-07-28 08:55)
DX: K63.5 Polyp of colon (principal); M06.9 Rheumatoid arthritis, unspecified; E07.9 Disorder of thyroid, unspecified; M19.90 Unspecified osteoarthritis, unspecified site; Z79.899 Other long term (current) drug therapy; G62.9 Polyneuropathy, unspecified; F32.A Depression, unspecified; G90.529 Complex regional pain syndrome I of unspecified lower limb; F41.9 Anxiety disorder, unspecified; Z87.19 Personal history of other diseases of the digestive system; I10 Essential (primary) hypertension
CPT/HCPCS: 45385; 88305; J7120; J2405

== ENCOUNTER 2021-08-22 11:25 | Outpatient (CLI) | payer OTHER, SELFPAY ==
[2021-08-22 15:40] LABS: Vitamin B12 184 pg/mL (211-911)
[2021-08-26 15:07] LABS: Free Kappa Light Chains 20.4 mg/L (3.3-19.4); Free Lambda Light Chains 33.7 mg/L (5.7-26.3)
== END 2021-08-22 23:59 | disposition short-term general hospital (02) ==
LOC: MTLAB 11:26
PROVIDERS: PCP Family Medicine Geriatric Medicine; Referring Provider Psychiatry & Neurology Neurology; Visit Provider Psychiatry & Neurology Neurology
DX: G62.9 Polyneuropathy, unspecified (principal)
CPT/HCPCS: 36415; 82607; 82746; 83883

== ENCOUNTER 2021-09-05 02:08 | Emergency (ER) | payer OTHER, SELFPAY ==
[2021-09-05 02:09] VITALS: BP 200/120; PULSE 89; RESP 18; TEMP 36.1; O2SAT 98; BMI 45.3
--- NOTE | 2021-09-05 02:22 | EDS_ITS ---
HPI History of Present Illness Chief Complaint: Back Informant: patient Onset/Context/Timing Onset: Month(s) Context: - (Started almost 2 years ago with an injury to her back) Chronic pain exacerbated by: Nothing in particular Worsened by: improves with Movement Relieved by: Nothing Associated Symptoms Associated Symptoms: Numbness (Both legs and feet chronic unchanged), Radiation to Right Leg and Radiation to Left Leg; Negative for Dysuria, Unable to Transfer, Urinary Retention, Urinary Incontinence, Constipation and Fecal Incontinence Narrative Narrative: Patient has chronic pain in her low back, since an injury in 2019. She has had radiation into both lower legs and numbness there as well as her feet for months, this preexisted the last back surgery she had in 2020. She states that surgery did not fix it she still has pain in her lumbosacral area along with the neuropathic symptoms in both lower extremities. She did not have anything specific that has made her worse tonight but states the pain is always bad, she is having trouble sleeping tonight and it is making her feel crazy and she did not know what else to do so she presents to the ER. She denies any new symptoms. She has seen back surgery, neurology, pain management for spinal injections although she has not had any of those since prior to her last surgery. She is on gabapentin. It appears that in the EMR she has been diagnosed with RSD. Prior similar symptoms: Yes and With Prior Back Pain [facility] Medical History Anemia Anxiety Arthritis Back pain Depression Former smoker Gastric reflux History of diverticulitis History of edema History of pain when walking History of steroid therapy Hx of pilonidal cyst Hypertension Injury of back Leg cramps Shortness of breath on exertion Thyroid disease Walker as ambulation aid Wears dentures Wears glasses Home Medications calcium carbonate 600 mg calcium (1,500 mg) tablet 600 mg PO BID tab 05/15/18 [History Last Taken Unknown] cholecalciferol (vitamin D3) 50 mcg (2,000 unit) capsule 50 mcg PO DAILY 03/15/20 [History Last Taken Unknown] leflunomide 20 mg tablet 20 mg PO DAILY 03/15/20 [History Last Taken Unknown] prednisone 10 mg tablet 5 mg PO DAILY tab 09/27/20 [History Last Taken Unknown] duloxetine 60 mg capsule,delayed release 60 mg PO DAILY cap 01/11/21 [History Last Taken Unknown] levothyroxine 137 mcg tablet 137 mcg PO DAILY tab 01/11/21 [History Last Taken Unknown] etanercept 50 mg/mL (1 mL) subcutaneous pen injector 50 mg SUBCUT QWEEK ml 03/17/21 [History Last Taken Unknown] pantoprazole 40 mg tablet,delayed release 40 mg PO DAILY 03/17/21 [History Last Taken Unknown] acetaminophen [Tylenol] 650 mg PO Q6H PRN 07/26/21 [History Last Taken Unknown] cyclobenzaprine 10 mg tablet 10 mg PO TID PRN #90 tab 08/22/21 [Rx Last Taken Unknown] gabapentin 300 mg capsule 300 mg PO DAILY 08/22/21 [History Last Taken Unknown] oxcarbazepine 150 mg tablet 150 mg PO BID #60 tab 08/22/21 [Rx Last Taken Unknown] Allergy/AdvReac Type Severity Reaction Status Date / Time bee pollen Allergy Severe Anaphylaxis Verified 09/05/21 02:13 tetracycline Allergy Unknown Verified 09/05/21 02:13 Family History Mother Diabetes COPD (chronic obstructive pulmonary disease) Father Myocardial infarction Surgical History H/O tubal ligation History of carpal tunnel release History of carpal tunnel release of both wrists History of lumbar surgery Hx of colonoscopy Hx of laparoscopy Social History adopted: No household members: spouse housing: house number of children: 2 current occupational status: employed pets and animals: Yes Smoking Status: Former smoker pack-years: 30 Tobacco: How many years used: 30 Electronic Cigarette Use: not used second hand exposure: No alcohol intake: never substance use type: marijuana seatbelt use: always do you feel safe at home: Yes ROS ROS ED Constitutional Constitutional ED: Denies chills or fever(s) Gastrointestinal Gastrointestinal: Denies abdominal pain, constipation, fecal incontinence, nausea or vomiting Genitourinary Genitourinary ED: Reports other Details: no urinary retention ; Denies abdominal discomfort or urinary incontinence Musculoskeletal Musculoskeletal: Reports as per HPI and back pain; Denies neck pain Integumentary Denies rash or wounds Neurologic Neurologic: Reports as per HPI, paresthesias RLE and LLE and radicular pain; Denies headache(s) or weakness EXAM Physical Exam Const Vital Signs: 09/05/21 02:09 Temperature 96.9 F L Temperature Source Temporal Pulse Rate 89 Respiratory Rate 18 Blood Pressure 200/120 H Blood Pressure Mean 146 Pulse Ox 98 Oxygen Delivery Method Room Air Positive well nourished and well developed General Appearance ED: well developed and NAD HEENT Negative for trauma or tenderness Eyes PERRL and EOMs intact bilaterally Neck full ROM and supple GI normal to inspection, nondistended, normoactive bowel sounds, soft to palpation and non-tender Back/Spine normal to inspection Lumbar Spine / Lower Back: ROM limited and straight leg raise negative bilaterally Extremity normal to inspection and full ROM Extremity Narrative: Trace bilateral lower extremity chronic edema without asymmetry or calf tenderness. Limited ability to perform straight leg raises due to pain in back and lower extremities even with touching them distally. Neuro oriented x3 Neuro Narrative: No gross sensory deficits in feet, but decreased sensation although she is extremely tender superficially without signs of cellul itis/infection Sensorium / Orientation: alert Motor Exam: strength 5/5 throughout and clonus absent Deep Tendon Reflexes: Rt Patellar (L4): 1+, Lt Patellar (L4): 1+, Rt Ankle (S1): 1+ and Lt Ankle (S1): 1+ Deep Tendon Reflexes Back: Rt Patellar (L4): 1+, Lt Patellar (L4): 1+, Rt Ankle (S1): 1+ and Lt Ankle (S1): 1+ Plantar Reflex: Downgoing: bilateral Psych mental status grossly normal and thought process normal Skin no rashes or lesions noted and no wounds MDM MDM MDM Narrative Medical decision making narrative: Patient does not have saddle anesthesia, new signs of cauda equina syndrome, and does not require any emergent imaging. Her pressure is high, likely because she is in pain. She is advised to have this rechecked as an outpatient. I advised her that I can provide some temporary pain relief here in the emergency department, but I would not be able to fix this in the emergency room. She does not require any x-rays, CT or any other emergent imaging at this time. Will be given a dose of intramuscular Dilaudid and Toradol since she asked for those, she had some relief with those in the past and understands that RSV is difficult to treat, she was given a dose of prophylactic oral Zofran as well. Discharge Plan Triage Chief Complaint: Back ED Provider: Jesus Alberto Urbina Dx/Rx/DC Orders Clinical Impression: Acute exacerbation of chronic low back pain, Neuropathic pain of both legs Instructions: ED Back Pain (Acute or Chronic) Prescriptions: No Action calcium carbonate [Calcium 600] 600 mg calcium (1,500 mg) tablet 600 mg PO BID RF: 0 leflunomide [Arava] 20 mg tablet 20 mg PO DAILY RF: 0 cholecalciferol (vitamin D3) 50 mcg (2,000 unit) capsule 50 mcg PO DAILY RF: 0 prednisone 10 mg tablet 5 mg PO DAILY RF: 0 levothyroxine 137 mcg tablet 137 mcg PO DAILY RF: 0 duloxetine 60 mg capsule,delayed release(DR/EC) 60 mg PO DAILY RF: 0 pantoprazole 40 mg tablet,delayed release (DR/EC) 40 mg PO DAILY RF: 0 Enbrel SureClick 50 mg/mL (1 mL) pen injector 50 mg subcut QWEEK RF: 0 gabapentin 300 mg capsule 300 mg PO DAILY RF: 0 oxcarbazepine 150 mg tablet 150 mg PO BID Qty: 60 RF: 3 cyclobenzaprine 10 mg tablet 10 mg PO TID PRN (Reason: muscle spasm/pain) Qty: 90 RF: 3 acetaminophen [Tylenol] 325 mg Tablet 650 mg PO Q6H PRN (Reason: Pain) RF: 0 Primary Care Provider: Valente Marie Chi Referrals: Valente Marie Chi, MD [Primary Care Provider] - As soon as possible (And/or Dr. Ramirez, Dr. Abdul, Dr. Mckeon) Disposition Disposition: Home, Self Care
[2021-09-05] MEDS: Ketorolac 60 MG/2 ML Vial IM (02:32)
[2021-09-05] MEDS: Ondansetron ODT 4 MG Tablet 8 MG PO (02:33)
[2021-09-05] MEDS: HYDROmorphone 1 MG/ML Syringe IV (02:33)
[2021-09-05 03:03] VITALS: PULSE 74; RESP 17; O2SAT 99
== END 2021-09-05 03:04 | disposition home or self-care (01) ==
LOC: ED 02:31
PROVIDERS: Emergency Provider Emergency Medicine; PCP Family Medicine Geriatric Medicine; Visit Provider Emergency Medicine
DX: M54.50 Low back pain, unspecified (principal); G62.9 Polyneuropathy, unspecified; I10 Essential (primary) hypertension; G89.29 Other chronic pain; Z87.891 Personal history of nicotine dependence; F12.90 Cannabis use, unspecified, uncomplicated
CPT/HCPCS: 96372; 96374; 99283

== ENCOUNTER 2021-09-06 16:49 | Outpatient (CLI) | payer OTHER, SELFPAY ==
--- NOTE | 2021-09-06 17:05 | RAD_ITS ---
EXAM: XR LEFT RIBS AND AP CHEST, 3 OR MORE VIEWS CLINICAL INDICATION: PLEURODYNIA left sided rib pain TECHNIQUE: Frontal and oblique views of the left ribs and frontal view of the chest. This report was created using [employer] report generation technology. COMPARISON: None. FINDINGS: LUNGS AND PLEURAL SPACES: Unremarkable. No consolidation or edema. No pneumothorax. No effusion. HEART: Unremarkable. Cardiac silhouette not enlarged. MEDIASTINUM: Central airways and mediastinal contour are unremarkable. BONES/JOINTS: Unremarkable. No evidence of displaced rib fractures. RAD/Ribs Uni Min 3V w/PA Chest IMPRESSION: Negative chest and left ribs series. Electronically Signed: Huang Vang MD at 17:39 EST ,
== END 2021-09-06 23:59 | disposition home or self-care (01) ==
LOC: RAD 16:50
PROVIDERS: PCP Family Medicine Geriatric Medicine; Referring Provider Family Medicine Geriatric Medicine; Visit Provider Family Medicine Geriatric Medicine
DX: R07.81 Pleurodynia (principal)
CPT/HCPCS: 71101

== ENCOUNTER 2021-10-10 15:34 | Outpatient (CLI) | payer OTHER, SELFPAY ==
[2021-10-10 17:31] LABS: Anion Gap 7 (5-15); BUN 13 mg/dL (7-18); BUN/Creat Ratio 15.6 RATIO (10-20); Calcium,Total 9.5 mg/dL (8.5-10.1); Chloride 105 mmol/L (98-107); Creatinine, Serum 0.84 mg/dL (0.55-1.02); EST Glomerular Filtration Rate 74 mL/min (>60); Est Glom Filt Rate - Afr Amer 90 mL/min (>60); Glucose 120 mg/dL (74-106); Potassium 3.6 mmol/L (3.5-5.1); Sodium Level 137 mmol/L (136-145)
[2021-10-10 17:34] LABS: Erythrocyte Sedimentation Rate 32 mm/hr (0-30)
[2021-10-10 17:38] LABS: Absolute Lymphocyte Count 1.67 X10^3/uL (0.83-4.51); Absolute Neutrophil Count 5.9 X10^3/uL (2.0-7.7); Basophil# 0.05 X10^3/uL; Basophil% 0.6 % (0-1); Eosinophil# 0.12 X10^3/uL; Eosinophils% 1.4 % (0-5); Hematocrit 47.6 % (37-47); Hemoglobin 15.9 g/dL (12.0-15.0); Lymphocyte # 1.67 X10^3/ul (0.83-4.51); Lymphocyte % 19.2 % (19-41); Mean Corp Hgb Conc 33.4 g/dL (32-36); Mean Corpuscular Hgb 29.7 pg (27.0-32.0); Monocyte# 0.94 X10^3/uL; Monocyte% 10.8 % (0-10); NRBC Flagged by Analyzer 0 % (0-5); Neutrophil % 67.5 % (47-70); Platelet Count 282 K/mm3 (150-450); RBC Distribution Width CV 13.7 % (11.6-14.6); RBC Distribution Width SD 44.3 fl (35.1-43.9); Red Blood Count 5.35 M/mm3 (4.2-5.4); White Blood Count 8.7 K/mm3 (4.4-11.0)
== END 2021-10-10 23:59 | disposition home or self-care (01) ==
LOC: POLAB3 15:35
PROVIDERS: PCP Family Medicine Geriatric Medicine; Visit Provider Family Medicine Geriatric Medicine
DX: T07.XXXA Unspecified multiple injuries, initial encounter (principal)
CPT/HCPCS: 36415; 80048; 85025; 85652; 86140; 87040

== ENCOUNTER 2021-11-04 14:17 | Emergency (ER) | payer OTHER, SELFPAY ==
[2021-11-04 14:19] VITALS: BP 157/119; PULSE 118; RESP 18; TEMP 36.8; O2SAT 100; BMI 42.6
--- NOTE | 2021-11-04 14:34 | RAD_ITS ---
EXAM: XR CHEST, 1 VIEW : 1960 CLINICAL INDICATION: fever TECHNIQUE: Frontal view of the chest. This report was created using [employer] report generation technology. COMPARISON: 09/06/2021 FINDINGS: LUNGS AND PLEURAL SPACES: Unremarkable. No consolidation or edema. No pneumothorax. No effusion. HEART: Unremarkable. Cardiac silhouette not enlarged. MEDIASTINUM: Central airways and mediastinal contour are unremarkable. BONES/JOINTS: Unremarkable. SOFT TISSUES: Unremarkable. RAD/Chest 1 View (Portable) IMPRESSION: No radiographic evidence of acute cardiopulmonary disease. at 1522 Reported and signed by: Bigg Fisher MD Electronically Signed: Bigg Fisher MD at 15:21 EDT ,
[2021-11-04] MEDS: Ondansetron 4 MG/2 ML Vial IV (14:48)
[2021-11-04] MEDS: 0.9% Normal Saline 1,000 ML 999 ML IV (14:49)
[2021-11-04 14:50] LABS: Absolute Lymphocyte Count 1.45 X10^3/uL (0.83-4.51); Absolute Neutrophil Count 2.3 X10^3/uL (2.0-7.7); Basophil# 0.07 X10^3/uL; Basophil% 1.4 % (0-1); Eosinophil# 0.21 X10^3/uL; Eosinophils% 4.2 % (0-5); Hematocrit 46.2 % (37-47); Hemoglobin 15.4 g/dL (12.0-15.0); Lymphocyte # 1.45 X10^3/ul (0.83-4.51); Lymphocyte % 29.2 % (19-41); Mean Corp Hgb Conc 33.3 g/dL (32-36); Mean Corpuscular Hgb 28.9 pg (27.0-32.0); Mean Corpuscular Volume 86.7 fL (81-99); Mean Platelet Vol. 10.4 fl (6.2-12.0); Monocyte# 0.97 X10^3/uL; Monocyte% 19.5 % (0-10); NRBC Flagged by Analyzer 0 % (0-5); Neutrophil # 2.25 X10^3/uL (2.7-7.7); Neutrophil % 45.3 % (47-70); Platelet Count 284 K/mm3 (150-450); RBC Distribution Width CV 13.5 % (11.6-14.6); RBC Distribution Width SD 42.6 fl (35.1-43.9); Red Blood Count 5.33 M/mm3 (4.2-5.4)
--- NOTE | 2021-11-04 14:54 | EDS_ITS ---
HPI <ALAL Fonseca - Last Filed: 11/04/21 16:04> History of Present Illness Chief Complaint: Cellulitis Narrative Narrative: 61-year-old female presents with 5 days ago she states she had an itching episode where her whole body felt itchy. She scratched her left arm to the point that she had an abrasion. The next day she started to feel tired and had a subjective fever and chills. Over the next few days this is continued with nausea, one episode of vomiting, and fatigue. No chest pain, shortness of breath, or cough. No abdominal pain or diarrhea. She has been putting Neosporin on her left arm abrasion and it has improved. She states she is worr ied she has Covid. PFS <ALLA Fonseca - Last Filed: 11/04/21 16:04> [facility] Medical History Anemia Anxiety Arthritis Back pain Depression Former smoker Gastric reflux History of diverticulitis History of edema History of pain when walking History of steroid therapy Hx of pilonidal cyst Hypertension Injury of back Leg cramps Shortness of breath on exertion Thyroid disease Walker as ambulation aid Wears dentures Wears glasses Home Medications calcium carbonate 600 mg calcium (1,500 mg) tablet 600 mg PO BID tab 05/15/18 [History Last Taken Unknown] cholecalciferol (vitamin D3) 50 mcg (2,000 unit) capsule 50 mcg PO DAILY 03/15/20 [History Last Taken Unknown] leflunomide 20 mg tablet 20 mg PO DAILY 03/15/20 [History Last Taken Unknown] prednisone 10 mg tablet 5 mg PO DAILY tab 09/27/20 [History Last Taken Unknown] duloxetine 60 mg capsule,delayed release 60 mg PO DAILY cap 01/11/21 [History Last Taken Unknown] levothyroxine 137 mcg tablet 137 mcg PO DAILY tab 01/11/21 [History Last Taken Unknown] etanercept 50 mg/mL (1 mL) subcutaneous pen injector 50 mg SUBCUT QWEEK ml 03/17/21 [History Last Taken Unknown] pantoprazole 40 mg tablet,delayed release 40 mg PO DAILY 03/17/21 [History Last Taken Unknown] acetaminophen [Tylenol] 650 mg PO Q6H PRN 07/26/21 [History Last Taken Unknown] cyclobenzaprine 10 mg tablet 10 mg PO TID PRN #90 tab 08/22/21 [Rx Last Taken Unknown] gabapentin 300 mg capsule 300 mg PO DAILY 08/22/21 [History Last Taken Unknown] oxcarbazepine 150 mg tablet 150 mg PO BID #60 tab 08/22/21 [Rx Last Taken Unknown] Allergy/AdvReac Type Severity Reaction Status Date / Time bee pollen Allergy Severe Anaphylaxis Verified 11/04/21 14:19 tetracycline Allergy Unknown Verified 11/04/21 14:19 Family History Mother Diabetes COPD (chronic obstructive pulmonary disease) Father Myocardial infarction Surgical History H/O tubal ligation History of carpal tunnel release History of carpal tunnel release of both wrists History of lumbar surgery Hx of colonoscopy Hx of laparoscopy Social History adopted: No household members: spouse housing: house number of children: 2 current occupational status: employed pets and animals: Yes Smoking Status: Former smoker pack-years: 30 Tobacco: How many years used: 30 Electronic Cigarette Use: not used second hand exposure: No alcohol intake: never substance use type: marijuana seatbelt use: always do you feel safe at home: Yes ROS <ALLA Fonseca - Last Filed: 11/04/21 16:04> ROS ED ROS Narrative Constitutional: Negative for fever, chills, malaise. Eyes: Negative for visual change. ENT: Negative for sore throat, ear pain, rhinorrhea. CVS: Negative for palpitations, chest pain, syncope. Respiratory: Negative for shortness of breath, cough, orthopnea. GI: Positive for nausea, vomiting. Negative for abdominal pain, diarrhea, constipation, melena, hematochezia. : Negative for dysuria, hematuria or frequency. Neuro: Negative for headache, motor/sensory dysfunction. Skin: Positive for wound. Negative for rash, abscess. Musc: Negative for joint pain, swelling, trauma. Heme: Negative for easy bruising, bleeding, lymphadenopathy. EXAM <ALLA Fonseca - Last Filed: 11/04/21 16:04> Physical Exam Narrative Exam Narrative: CONST: Patient sitting in no acute distress. EYES: Normal inspection. ENT: Normal inspection, moist mucous membranes. NECK: Normal inspection. RESP: No respiratory distress, CTAB. CVS: Regular rate and rhythm, no murmur, no gallop. ABD: Soft and nontender, no guarding or rebound, nondistended. SKIN: Color normal, no rash, warm, dry, intact. EXTREMITIES: Normal appearance, no pedal edema. NEURO: Oriented x4. PSYCH: Normal affect. Const Vital Signs: 11/04/21 14:19 11/04/21 14:28 Temperature 98.3 F Temperature Source Oral Pulse Rate 118 H Respiratory Rate 18 Respiratory Pattern Tachypnea Blood Pressure 157/119 H Blood Pressure Mean 131 Pulse Ox 100 Oxygen Delivery Method Room Air <Dr. Dimitry Patterson DO - Last Filed: 11/04/21 15:56> Physical Exam Const Vital Signs: 11/04/21 14:19 11/04/21 14:28 Temperature 98.3 F Temperature Source Oral Pulse Rate 118 H Respiratory Rate 18 Respiratory Pattern Tachypnea Blood Pressure 157/119 H Blood Pressure Mean 131 Pulse Ox 100 Oxygen Delivery Method Room Air MDM <ALLA Fonseca - Last Filed: 11/04/21 16:04> [facility] Lab Data Labs: Laboratory Results - last 24 hr 11/04/21 11/04/21 11/04/21 14:40 14:40 15:40 WBC 5.0 RBC 5.33 Hgb 15.4 H Hct 46.2 MCV 86.7 MCH 28.9 MCHC 33.3 RDW Std Deviation 42.6 RDW Coeff of Eugenio 13.5 Plt Count 284 MPV 10.4 Immature Gran % (Auto) 0.400 Neut % (Auto) 45.3 L Lymph % (Auto) 29.2 Kane % (Auto) 19.5 H Eos % (Auto) 4.2 Baso % (Auto) 1.4 H Absolute Neuts (auto) 2.3 Absolute Lymphs (auto) 1.45 Nucleated RBC % 0 Sodium 139 Potassium 3.5 Chloride 107 Carbon Dioxide 25.0 Anion Gap 7 BUN 13 Creatinine 0.96 Estim Creat Clear Calc 45.32 Est GFR (MDRD) Af Amer 76 Est GFR (MDRD) Non-Af 63 BUN/Creatinine Ratio 13.5 Glucose 148 H Calcium 9.2 Urine Color Yellow Urine Clarity Sl. Cloudy Urine pH 5.0 Ur Specific Yantis 1.025 Urine Protein 15 H Urine Glucose (UA) Normal Urine Ketones 5 H Urine Occult Blood Negative Urine Nitrite Negative Urine Bilirubin Negative Urine Urobilinogen Normal Ur Leukocyte Esterase 25 H Urine RBC 0 SEEN Urine WBC 5-10 SEEN Ur Squamous Epith Cells 0-5 SEEN Urine Bacteria 0 SEEN Urine Mucus 0 SEEN Radiography Diagnostic Testing: Clinical Impression(s) from Imaging Studies Chest X-Ray 11/04/21 14:34 IMPRESSION: No radiographic evidence of acute cardiopulmonary disease. at 1522 Reported and signed by: Bigg Fisher MD Electronically Signed: Bigg Fisher MD at 15:21 EDT Reading Location ID and State: [address] [place] [address] Tel , Service support , <Dr. Dimitry Patterson, DO - Last Filed: 11/04/21 15:56> [facility] MDM Narrative Medical decision making narrative: I have personally performed a face to face assessment of the patient and have reviewed the WILMER Note. I performed a substantive portion of the visit including all aspects of the following. My siddiqi findings include: History: Patient presents with fever, nausea, vomiting, diarrhea, and left arm wound that has been getting worse over the past 3 to 4 days. Patient did not take her temperature at home but states she was having shaking and chills. Patient states she felt warm. Patient denies any hematemesis or coffee-ground emesis. Patient denies any melena or hematochezia. Patient has a superficial wound over her left forearm that she states is not healing well. Patient denies any discharge or drainage from this area. Exam: Vital signs are stable except for mild tachycardia of 118. Patient is afebrile here. Patient is in no acute distress. Oral mucosa is pink and moist. Neck is supple. Trachea is midline. There is no JVD. Heart was regular and tachycardic. Lungs are clear and equal bilaterally. Abdomen is soft. Bowel sounds are normal. There is no tenderness. Cranial nerves II through XII are intact. There are no focal motor or sensory deficits noted. Skin is warm and dry. There is a superficial ulceration over the dorsal aspect of the left distal forearm. There is no discharge or drainage. There is no surrounding erythema. There is full range of motion. Medical Decison Making: CBC was within normal limits. Basic metabolic profile was within normal limits. Urinalysis does not show any evidence of urinary tract infection. COVID-19 rapid antigen was obtained and was negative. P ortable 1 view chest x-ray was obtained. On my interpretation, lung conley are clear. There is normal cardiac silhouette. Bony thorax is normal. There is no acute process noted. Radiologist also interpreted the x-ray and agrees. Patient was advised of her findings. Patient was instructed to follow-up with her primary care physician in 5 to 7 days. Patient was instructed to continue Tylenol or ibuprofen as needed for any pain or fevers. Patient was instructed to drink plenty of fluids. Patient understood and was agreeable with the plan. All questions were answered. Lab Data Labs: Laboratory Results - last 24 hr 11/04/21 11/04/21 11/04/21 14:40 14:40 15:40 WBC 5.0 RBC 5.33 Hgb 15.4 H Hct 46.2 MCV 86.7 MCH 28.9 MCHC 33.3 RDW Std Deviation 42.6 RDW Coeff of Eugenio 13.5 Plt Count 284 MPV 10.4 Immature Gran % (Auto) 0.400 Neut % (Auto) 45.3 L Lymph % (Auto) 29.2 Kane % (Auto) 19.5 H Eos % (Auto) 4.2 Baso % (Auto) 1.4 H Absolute Neuts (auto) 2.3 Absolute Lymphs (auto) 1.45 Nucleated RBC % 0 Sodium 139 Potassium 3.5 Chloride 107 Carbon Dioxide 25.0 Anion Gap 7 BUN 13 Creatinine 0.96 Estim Creat Clear Calc 45.32 Est GFR (MDRD) Af Amer 76 Est GFR (MDRD) Non-Af 63 BUN/Creatinine Ratio 13.5 Glucose 148 H Calcium 9.2 Urine Color Yellow Urine Clarity Sl. Cloudy Urine pH 5.0 Ur Specific Yantis 1.025 Urine Protein 15 H Urine Glucose (UA) Normal Urine Ketones 5 H Urine Occult Blood Negative Urine Nitrite Negative Urine Bilirubin Negative Urine Urobilinogen Normal Ur Leukocyte Esterase 25 H Urine RBC 0 SEEN Urine WBC 5-10 SEEN Ur Squamous Epith Cells 0-5 SEEN Urine Bacteria 0 SEEN Urine Mucus 0 SEEN Radiography Diagnostic Testing: Clinical Impression(s) from Imaging Studies Chest X-Ray 11/04/21 14:34 IMPRESSION: No radiographic evidence of acute cardiopulmonary disease. at 1522 Reported and signed by: Bigg Fisher MD Electronically Signed: Bigg Fisher MD at 15:21 EDT , Discharge Plan Triage Chief Complaint: Cellulitis ED Provider: Sarina Shay Dx/Rx/DC Orders Clinical Impression: Acute viral syndrome, Open wound of left upper arm Instructions: ED Viral Syndrome (Adult) Prescriptions: No Action calcium carbonate [Calcium 600] 600 mg calcium (1,500 mg) tablet 600 mg PO BID RF: 0 leflunomide [Arava] 20 mg tablet 20 mg PO DAILY RF: 0 cholecalciferol (vitamin D3) 50 mcg (2,000 unit) capsule 50 mcg PO DAILY RF: 0 prednisone 10 mg tablet 5 mg PO DAILY RF: 0 levothyroxine 137 mcg tablet 137 mcg PO DAILY RF: 0 duloxetine 60 mg capsule,delayed release(DR/EC) 60 mg PO DAILY RF: 0 pantoprazole 40 mg tablet,delayed release (DR/EC) 40 mg PO DAILY RF: 0 Enbrel SureClick 50 mg/mL (1 mL) pen injector 50 mg subcut QWEEK RF: 0 gabapentin 300 mg capsule 300 mg PO DAILY RF: 0 oxcarbazepine 150 mg tablet 150 mg PO BID Qty: 60 RF: 3 cyclobenzaprine 10 mg tablet 10 mg PO TID PRN (Reason: muscle spasm/pain) Qty: 90 RF: 3 acetaminophen [Tylenol] 325 mg Tablet 650 mg PO Q6H PRN (Reason: Pain) RF: 0 Primary Care Provider: Valente Marie Chi Referrals: Valente Marie Chi, MD [Primary Care Provider] - Activity Restrictions/Additional Instructions: Your symptoms are consistent with a viral illness. I do not think this is from the wound on your arm as it looks like it is healing well. take Tylenol or ibuprofen as needed every 6 hours. Rest and drink fluids. If your symptoms worsen come back to the ER. Disposition Disposition: Home, Self Care
[2021-11-04 15:01] LABS: Anion Gap 7 (5-15); BUN 13 mg/dL (7-18); BUN/Creat Ratio 13.5 RATIO (10-20); Calcium,Total 9.2 mg/dL (8.5-10.1); Chloride 107 mmol/L (98-107); Creatinine, Serum 0.96 mg/dL (0.55-1.02); EST Glomerular Filtration Rate 63 mL/min (>60); Est Glom Filt Rate - Afr Amer 76 mL/min (>60); Estimated Creatinine Clearance 45.32 ml/min; Glucose 148 mg/dL (74-106); Potassium 3.5 mmol/L (3.5-5.1); Sodium Level 139 mmol/L (136-145)
[2021-11-04 15:46] LABS: Bacteria 0 SEEN /hpf (None Seen); Mucous, Urine 0 SEEN /hpf (<or=2+); Red Blood Cells-Urine 0 SEEN /hpf (0-5)
[2021-11-04 15:47] LABS: Color, Urine Yellow (Yellow); Glucose, Dipstick Normal (Normal); Ketone-Dipstick 5 mg/dl (Negative); Leukocyte Esterase-Dipstick 25 /ul (Negative); Nitrite-Dipstick Negative (Negative); Occult Blood-Urine Negative /ul (Negative); Protein-Dipstick 15 mg/dl (Negative); Specific Gravity, Urine 1.025 (1.002-1.030); Urine Bilirubin Dipstick Negative (Negative); Urine Clarity Sl. Cloudy (Clear); Urine Urobilinogen Normal (Normal)
[2021-11-04 15:54] LABS: Squamous Epithelial Cells - UA 0-5 SEEN /hpf (5-10); White Blood Cells 5-10 SEEN /hpf (0-5)
[2021-11-04 16:13] VITALS: BP 140/92; PULSE 98
== END 2021-11-04 16:25 | disposition home or self-care (01) ==
PROVIDERS: Emergency Provider Physician Assistant; PCP Family Medicine Geriatric Medicine; Visit Provider Physician Assistant
DX: B34.9 Viral infection, unspecified (principal); R11.2 Nausea with vomiting, unspecified; S41.102A Unspecified open wound of left upper arm, initial encounter; I10 Essential (primary) hypertension; Z87.891 Personal history of nicotine dependence; S51.802A Unspecified open wound of left forearm, initial encounter; R19.7 Diarrhea, unspecified; F12.90 Cannabis use, unspecified, uncomplicated
CPT/HCPCS: 71045; 80048; 81001; 85025; 87811; 99284; J7030; A4216; J2405

== ENCOUNTER → 2021-11-20 | Outpatient (CLI) | payer OTHER, SELFPAY | END | disposition home or self-care (01) | PROVIDERS: PCP Family Medicine Geriatric Medicine; Visit Provider Family Medicine Geriatric Medicine | DX: R68.83 Chills (without fever) (principal) | CPT/HCPCS: 87635; 87804; 87807; C9803; U0003; U0005 ==

== ENCOUNTER 2021-12-04 17:13 | Emergency (ER) | payer OTHER, SELFPAY ==
[2021-12-04 17:14] VITALS: BP 148/101; PULSE 106; RESP 20; TEMP 36; O2SAT 96; BMI 42.6
[2021-12-04 18:07] VITALS: BMI 42.6
--- NOTE | 2021-12-04 18:29 | CT_ITS ---
EXAMINATION : Head CT w/out contrast HISTORY : visual change COMPARISON : None. TECHNIQUE : Multiple contiguous axial images were obtained from the skull base to the vertex without intravenous contrast. A radiation dose optimization technique was used for this scan. FINDINGS : The ventricles and sulci are normal in size. There is no evidence for acute intracranial hemorrhage, mass effect, or midline shift. There is no extra-axial fluid collection. There is normal olson-white differentiation, without CT evidence of acute ischemia or infarct. The skull base and calvarium are unremarkable. The orbits are unremarkable. The paranasal sinuses are clear. The mastoid air cells are well-aerated. The soft tissues are unremarkable. CT/Brain/Head without Contrast IMPRESSION: No acute intracranial abnormality. Electronically Signed: Jag Herrera MD at 18:57 EDT ,
--- NOTE | 2021-12-04 18:31 | EX.ED.DYSGE1 ---
HPI History of Present Illness Chief Complaint: Neuro S/Sx Informant: patient Onset/Context/Timing Onset: Weeks Context: Gradual Onset Timing: Continuous Current Severity: Mild Maximum Severity: Mild Narrative Narrative: 61-year-old female history of anxiety, depression and rheumatoid arthritis on Enbrel. States she has had decreased and blurry vision for last several weeks. Saw mobile home set up person told her she had cataracts but wanted her to be further evaluated. Small amount she denies any headache or head trauma. She has never had a stroke or mini stroke. Prior similar symptoms: No Recent Illness/Hospitalization: No PFSH PFSH Medical History Anemia Anxiety Arthritis Back pain Depression Former smoker Gastric reflux History of diverticulitis History of edema History of pain when walking History of steroid therapy Hx of pilonidal cyst Hypertension Injury of back Leg cramps Shortness of breath on exertion Thyroid disease Walker as ambulation aid Wears dentures Wears glasses Home Medications calcium carbonate 600 mg calcium (1,500 mg) tablet 600 mg PO BID tab 05/15/18 [History Last Taken Unknown] cholecalciferol (vitamin D3) 50 mcg (2,000 unit) capsule 50 mcg PO DAILY 03/15/20 [History Last Taken Unknown] leflunomide 20 mg tablet 20 mg PO DAILY 03/15/20 [History Last Taken Unknown] prednisone 10 mg tablet 5 mg PO DAILY tab 09/27/20 [History Last Taken Unknown] duloxetine 60 mg capsule,delayed release 60 mg PO DAILY cap 01/11/21 [History Last Taken Unknown] levothyroxine 137 mcg tablet 137 mcg PO DAILY tab 01/11/21 [History Last Taken Unknown] etanercept 50 mg/mL (1 mL) subcutaneous pen injector 50 mg SUBCUT QWEEK ml 03/17/21 [History Last Taken Unknown] pantoprazole 40 mg tablet,delayed release 40 mg PO DAILY 03/17/21 [History Last Taken Unknown] acetaminophen [Tylenol] 650 mg PO Q6H PRN 07/26/21 [History Last Taken Unknown] cyclobenzaprine 10 mg tablet 10 mg PO TID PRN #90 tab 08/22/21 [Rx Last Taken Unknown] gabapentin 300 mg capsule 300 mg PO DAILY 08/22/21 [History Last Taken Unknown] oxcarbazepine 150 mg tablet 150 mg PO BID #60 tab 08/22/21 [Rx Last Taken Unknown] Allergy/AdvReac Type Severity Reaction Status Date / Time bee pollen Allergy Severe Anaphylaxis Verified 12/04/21 17:14 tetracycline Allergy Unknown Verified 12/04/21 17:14 Family History Mother Diabetes COPD (chronic obstructive pulmonary disease) Father Myocardial infarction Surgical History H/O tubal ligation History of carpal tunnel release History of carpal tunnel release of both wrists History of lumbar surgery Hx of colonoscopy Hx of laparoscopy Social History adopted: No household members: spouse housing: house number of children: 2 current occupational status: employed pets and animals: Yes Smoking Status: Former smoker pack-years: 30 Tobacco: How many years used: 30 Electronic Cigarette Use: not used second hand exposure: No alcohol intake: never substance use type: marijuana seatbelt use: always do you feel safe at home: Yes ROS ROS ED ROS Narrative Visual change. Review of Systems ROS Unobtainable: Denies due to encephalopathy Constitutional Constitutional ED: Denies fever(s) Eyes Eyes: Denies change in vision ENT ENT ED: Denies ear pain Cardiovascular Cardiovascular: Denies chest pain Respiratory/Chest Respiratory/Chest: Denies dyspnea Gastrointestinal Gastrointestinal: Denies abdominal pain Genitourinary Genitourinary ED: Denies dysuria Musculoskeletal Musculoskeletal: Denies myalgias Integumentary Denies rash Neurologic Neurologic: Denies headache(s), paresthesias or weakness Psychiatric Psychiatric: Denies depression Endocrine Endocrinology: Denies polyuria Allergic/Immunologic Allergic/Immunologic ED: Denies urticaria EXAM Physical Exam Narrative Exam Narrative: 61-year-old female no acute distress. Vital signs stable afebrile. H EENT exam unremarkable. Pupils round reactive light motions are intact. No facial droop. Lungs clear. Heart regular rate and rhythm no murmur. Abdomen soft nontender. Upper and lower extremities are unremarkable. Nontender no edema. Normal lastex operator strength bilaterally. Dorsi plantarflexion intact. Neurologic exam normal. No facial droop. Normal speech. Extra motions intact. Fingertip to nose [id number] within normal limits bilaterally. NIH score 0 Const Vital Signs: 12/04/21 17:14 Temperature 96.8 F L Temperature Source Temporal Pulse Rate 106 H Respiratory Rate 20 H Blood Pressure 148/101 H Blood Pressure Mean 116 Pulse Ox 96 Oxygen Delivery Method Room Air Positive well nourished, well developed and obese; Negative for cachectic, contractures or unkempt General Appearance ED: well developed and NAD; Negative for unkempt, cachectic, contractures, cyanotic, diaphoretic or pallor Nutritional Appearance: obese; Negative for cachectic HEENT Reports moist mucous membranes Negative for trauma or tenderness Eyes PERRL and EOMs intact bilaterally Neck no lymphadenopathy, supple and no JVD General: Negative for tenderness Chest Wall inspection of chest normal and palpation of chest normal Resp normal respiratory effort and clear to auscultation bilaterally Effort and Inspection: Negative for pain with movement Auscultation: Negative for rales, rhonchi or wheezes Cardio regular rate, regular rhythm, S1 normal heart sound, S2 normal heart sound and no murmurs GI normal to inspection, nondistended, normoactive bowel sounds, non-tender, non-distended and no masses Inspection: Negative for abdominal distention Auscultation: normoactive bowel sounds Palpation: soft; Negative for tender, guarding or rebound tenderness present Back/Spine no CVA tenderness General Back: Negative for CVA tenderness Cervical Spine: Negative for cervical spine tenderness Thoracic Spine / Upper Back: Negative for thoracic spinal tenderness Extremity normal to inspection General Extremety ED: Negative for edema or tenderness General Extremity: Negative for edema Neuro oriented x3 Sensorium / Orientation: alert; Negative for orientation impaired, lethargic or stuporous Motor Exam: strength 5/5 throughout; Negative for general weakness Psych mental status grossly normal Appearance: Negative for unkempt Mood & Affect: Negative for depressed or tearful Skin no rashes or lesions noted, no wounds and No skin turgor normal General Skin Exam: Negative for elasticity normal, jaundice or pallor MDM MDM MDM Narrative Medical decision making narrative: 61-year-old sent down for a CAT scan of the brain by the mobile home set up person. Exam is normal. She has had recent labs by her primary care physician last several weeks which were unremarkable. Repeat exam unchanged at 7:54 PM. Will be discharged home. Radiography Diagnostic Testing: Clinical Impression(s) from Imaging Studies Brain CT 12/04/21 18:29 IMPRESSION: No acute intracranial abnormality. Electronically Signed: Jag Herrera MD at 18:57 EDT , CAT scan of her brain is read by the radiologist and reviewed by me shows no acute abnormality. Discharge Plan Triage Chief Complaint: Neuro S/Sx ED Provider: Eros Huang Dx/Rx/DC Orders Clinical Impression: Alteration in vision, History of cataract Prescriptions: No Action calcium carbonate [Calcium 600] 600 mg calcium (1,500 mg) tablet 600 mg PO BID RF: 0 leflunomide [Arava] 20 mg tablet 20 mg PO DAILY RF: 0 cholecalciferol (vitamin D3) 50 mcg (2,000 unit) capsule 50 mcg PO DAILY RF: 0 prednisone 10 mg tablet 5 mg PO DAILY RF: 0 levothyroxine 137 mcg tablet 137 mcg PO DAILY RF: 0 duloxetine 60 mg capsule,delayed release(DR/EC) 60 mg PO DAILY RF: 0 pantoprazole 40 mg tablet,delayed release (DR/EC) 40 mg PO DAILY RF: 0 Enbrel SureClick 50 mg/mL (1 mL) pen injector 50 mg subcut QWEEK RF: 0 gabapentin 300 mg capsule 300 mg PO DAILY RF: 0 oxcarbazepine 150 mg tablet 150 mg PO BID Qty: 60 RF: 3 cyclobenzaprine 10 mg tablet 10 mg PO TID PRN (Reason: muscle spasm/pain) Qty: 90 RF: 3 acetaminophen [Tylenol] 325 mg Tablet 650 mg PO Q6H PRN (Reason: Pain) RF: 0 Primary Care Provider: Valente Marie Chi Referrals: Valente Marie Chi, MD [Primary Care Provider] - 1 Week if not improving Activity Restrictions/Additional Instructions: Follow-up with your primary care provider. Your CAT scan today was unremarkable. There is no signs of a stroke. Disposition Disposition: Home, Self Care
[2021-12-04 20:11] VITALS: BP 135/78; PULSE 78; RESP 14; TEMP 36.9; TEMP 37.2; O2SAT 98
== END 2021-12-04 20:13 | disposition home or self-care (01) ==
PROVIDERS: Emergency Provider Emergency Medicine; PCP Family Medicine Geriatric Medicine; Visit Provider Emergency Medicine
DX: H53.9 Unspecified visual disturbance (principal); F12.90 Cannabis use, unspecified, uncomplicated; Z87.891 Personal history of nicotine dependence; I10 Essential (primary) hypertension; F41.9 Anxiety disorder, unspecified; E66.9 Obesity, unspecified
CPT/HCPCS: 70450; 99283